=== PATIENT | male | born 1970 | race Caucasian/White ===

== ENCOUNTER 2016-12-27 17:11 | Inpatient (IN) | payer OTHER ==
[2016-12-27 19:01] LABS: Hematocrit 46 % (42-52); Hemoglobin 15.6 g/dl (14.0-18.0); Mean Corpuscular HGB Conc 34 g/dl (31-36); Mean Corpuscular Hemoglobin 30 pg (27-31); Mean Corpuscular Volume 87 fL (80-94); Mean Platelet Volume 8 um3 (7.4-10.4); Red Blood Count 5.26 10^6/ul (4.0-5.4); Red Cell Distribution Width 14 % (10.5-15); White Blood Count 6.2 10^3/ul (3.5-10.8)
[2016-12-27 19:23] LABS: ALT 24 U/L (7-52); AST 22 U/L (13-39); Albumin 3.9 g/dL (3.2-5.2); Alkaline Phosphatase 76 U/L (34-104); Anion Gap 8 mmol/L (2-11); BUN/Creatinine Ratio 14.4 (8-20); Blood Urea Nitrogen 13 mg/dL (6-24); CO2 Carbon Dioxide 27 mmol/L (22-32); Calcium 8.8 mg/dL (8.6-10.3); Chloride 99 mmol/L (101-111); EGFR African American 116.3 (>60); EGFR Non-African American 90.4 (>60); Globulin 3.6 g/dL (2-4); Glucose 264 mg/dL (70-100); Potassium 3.7 mmol/L (3.5-5.0); Sodium 134 mmol/L (133-145); Total Protein 7.5 g/dL (6.4-8.9)
[2016-12-27 19:53] LABS: Acetaminophen < 15 mcg/mL; Alcohol < 10 mg/dL (<10); Salicylate < 2.50 mg/dL (<30)
[2016-12-27 20:04] LABS: TSH (Thyroid Stimulating Horm) 4.38 mcIU/mL (0.34-5.60)
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
--- NOTE | 2016-12-27 22:54 | PN ---
Dana Cam SooYoung, scribed for Mina Figueroa on 12/27/16 at 2234 . Progress Note - Progress Note Date of Service: 12/27/16 Note: SO at shift change from Dr. Patel, pending MHE. Discussed with pyschiatrist after MHE, pt will be admitted to [facility]. DX: DEPRESSION The documentation as recorded by the Dana antoine SooYoung accurately reflects the service I personally performed and the decisions made by Henry kan Emmanuel.
[2016-12-28] MEDS: Gabapentin CAP(*) 300 MG PO SCH ×3 (10:32→21:16)
[2016-12-28] MEDS: Insulin LISPRO* 1 UNITS UNIT SUBCUT SCH ×3 (11:51→21:38)
[2016-12-28] MEDS: Insulin GLARGINE(*) 1 UNITS UNIT SUBCUT SCH (11:52)
--- NOTE | 2016-12-28 15:46 | ADMNOTE ---
Identification - Identify Employment Status: Unemployed Hx Psychiatric Hospitalization: No Prior Psychiatric Diagnosis: None Arrived to Hospital Via: Law Enforcement History - Objective HPI: BIB law enforcement after his room mate called police as he was verbalizing suicidal thoughts with plans to not eat and use his insulin to end his life. He was apprehended for stealing $500.00 from his sister's credit card and possibly facing some senior living time next month. Extremely anxious and humiliated and feels guilty. Has been thinking about ending his life instead of going to senior living. Denies depressive, manic/ hypomanic or psychotic symptoms. Lab Results: Laboratory Tests 12/28/16 12/28/16 07:37 11:31 POC Glucose (mg/dL) 218 H 289 H Exam Appearance: Healthy Appearing Hygiene: Normal Grooming: Fairly Well Kept Psychomotor Activities: Normal Exhibits Abnormal Movement: No Attitude and Relatedness: Appropriate Eye Contact: Good - Speech Quality: Unpressured Latencies: Normal Quantity: Appropriate Patient's Decription of Mood: "Terrible" Observed Affect: Depressed Affect Consistent with: Dysphoria Patient's Thought Process: Coherent, Goal Directed Thought Content: Yes Passive Wish, Yes Suicidal Planning - Use his own Insulin, No Homicidal Ideation, No Paranoid Ideation Experiencing Hallucinations: No, Sensorium is Clear Type of Hallucinations: Visual: No, Auditory: No, Command: No Level of Consciousness: Alert Orientation: Yes Intact, Yes Orientated to Time, Yes Orientated to Place, Yes Orientated to Person Impulse Control: Tenuous Insight and Judgement: Poor Impression - Impression Merits Inpatient Hospitalization: Yes - [place] [facility] Mental Illness: Adjustment d/o, depressed mood. - [place] [facility] Medical Illness: Insulin dependant DM II Plan - Treatment Plan Continued Medication Management: Start Medication Medications: Current Medications Gabapentin (Neurontin Cap(*)) 600 mg PO TID [facility] Last Admin: 12/28/16 13:40 Dose: 600 mg Hydroxyzine HCl (Atarax Tab*) 25 mg PO Q6H PRN PRN Reason: AGITATION/ANXIETY/INSOMNIA Insulin Glargine (Lantus(*)) 55 units SUBCUT DAILY [facility] Last Admin: 12/28/16 11:52 Dose: 55 units Insulin Human Lispro (Humalog*) 0 units SUBCUT [facility] PRN Reason: Protocol Last Admin: 12/28/16 11:51 Dose: 6 units - Discharge Plan Discharge Plan: Outpatient Follow Up Outpatient Program: [facility]
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
[2016-12-28] MEDS: Atorvastatin* 20 MG TAB PO SCH (21:16)
[2016-12-28] MEDS: hydrOXYzine HCL TAB* 25 MG PO PRN (21:16)
[2016-12-29] MEDS: Insulin LISPRO* 1 UNITS UNIT SUBCUT SCH ×4 (09:16→20:17)
[2016-12-29] MEDS: Gabapentin CAP(*) 300 MG PO SCH ×3 (09:19→20:19)
[2016-12-29] MEDS: Insulin GLARGINE(*) 1 UNITS UNIT SUBCUT SCH (09:20)
[2016-12-29 10:13] LABS: Urine Bilirubin Negative (Negative); Urine Glucose 1+(50 mg/dL) (Negative); Urine Nitrite Negative (Negative)
[2016-12-29 10:20] LABS: Benzodiazepine Urine Screen None Detected (None Detect)
[2016-12-29] MEDS: hydrOXYzine HCL TAB* 25 MG PO PRN ×2 (13:34→20:28)
[2016-12-29] MEDS ORDERED: Acetaminophen TAB* 325 MG PO PRN (20:13)
[2016-12-29] MEDS ORDERED: Acetaminophen TAB* 325 MG ONE (20:14)
[2016-12-29] MEDS: Atorvastatin* 20 MG TAB PO SCH (20:19)
[2016-12-30] MEDS: hydrOXYzine HCL TAB* 25 MG PO PRN ×3 (06:17→20:52)
[2016-12-30] MEDS: Insulin LISPRO* 1 UNITS UNIT SUBCUT SCH ×4 (08:59→20:49)
[2016-12-30] MEDS: Gabapentin CAP(*) 300 MG PO SCH ×3 (09:00→20:49)
[2016-12-30] MEDS: Insulin GLARGINE(*) 1 UNITS UNIT SUBCUT SCH (09:00)
--- NOTE | 2016-12-30 13:23 | PN ---
MHU: Group Therapy Note - Service Type Service Type: 36009 Group Psychotherapy - Cognitive Behavioral Group Therapy ( CBT):Patient was attentive and participatory in CBT programming this morning, and remained in good behavioral control. Patient expressed positive insights regarding relevant treatment interventions and goals.
--- NOTE | 2016-12-30 15:42 | PN ---
Subjective - Subjective Subjective: Patient is dysphoric and tearful. He reports crying daily, anhedonia and decrease in ADLs and diabetes management. He report daily thoughts of "I don't want to be here anymore, I want to be with them" and refers to his late parents. Patient also endorses generalized anxiety with panic attacks. He denies prior medication trials for the above. He states he smokes marijuana daily to quell anxiety. Objective - Appearance Appearance: Healthy Appearing Dysmorphic Features: Yes Hygiene: Normal Grooming: Well Kept - Behavior Psychomotor Activities: Normal Exhibits Abnormal Movement: No - Attitude and Relatedness Attitude and Relatedness: Cooperative Eye Contact: Good - Speech Quality: Unpressured Latencies: Normal Quantity: Copious - Mood Patient's Decription of Mood: "Anxious" - Affect Observed Affect: Tearful Affect Consistent with: Dysphoria - Thought Process Patient's Thought Process: Coherent, Goal Directed, Over Inclusive Thought Content: Yes Passive Wish, No Suicidal Planning, No Homicidal Ideation, No Paranoid Ideation - Sensorium Experiencing Hallucinations: No, Sensorium is Clear Type of Hallucinations: Visual: No, Auditory: No, Command: No - Level of Consciousness Level of Consciousness: Alert Orientation: Yes Intact, Yes Orientated to Time, Yes Orientated to Place, Yes Orientated to Person - Impulse Control Impulse Control: Tenuous - Insight and Judgement Insight and Judgement: Poor - Group Participation Particating in Group Activities: Yes - Medication Management Medication Management Adherence: Yes Assessment - Assessment Merits Inpatient Hospitalization: For Immediate Safety, For Stabilization, To Initiate Treatment Inpatient DSM-IV Dx: I: adjustment d/o with depressed mood; generalized anxiety d/o; unspecified depressive d/o. II: deferred. III: type 2 DM, HTN. IV: severe stressors r/t finances, social isolation and legal involvement. V: 50 Clinical Impression: Sepideh is a 46yo male with no prior psychiatric history who presents with depressed mood and suicidal ideation. He reports anxiety and cannabis dependence. He is grieving the of his mother who passed in may 2015. He is facing legal consequences due to stealing his sister's credit card. He merits hospitalization for immediate safety and stabilization. Will refer to outpatient services upon discharge. Plan - Plan Treatment Plan: Name: SEPIDEH MERCHANT Birthdate: 1970 [id number] Continued Medication Management: Different Medication Medications: Current Medications Acetaminophen (Tylenol Tab*) 650 mg PO Q6H PRN PRN Reason: HEADACHE Atorvastatin Calcium (Lipitor*) 20 mg PO BEDTIME [facility] Last Admin: 12/29/16 20:19 Dose: 20 mg Gabapentin (Neurontin Cap(*)) 600 mg PO TID [facility] Last Admin: 12/30/16 13:37 Dose: 600 mg Hydroxyzine HCl (Atarax Tab*) 25 mg PO Q6H PRN PRN Reason: AGITATION/ANXIETY/INSOMNIA Last Admin: 12/30/16 13:37 Dose: 25 mg Insulin Glargine (Lantus(*)) 55 units SUBCUT DAILY [facility] Last Admin: 12/30/16 09:00 Dose: 55 units Insulin Human Lispro (Humalog*) 0 units SUBCUT ACHS [facility] PRN Reason: Protocol Last Admin: 12/30/16 12:02 Dose: 4 units start: Wellbutrin SR 150mg qam mirtazapine 15mg qhs - Discharge Plan Discharge Plan: Outpatient Follow Up Outpatient Program: [facility]
[2016-12-30] MEDS: Atorvastatin* 20 MG TAB PO SCH (20:49)
[2016-12-30] MEDS: Mirtazapine TAB* 15 MG PO PRN (20:52)
[2016-12-31] MEDS: Insulin LISPRO* 1 UNITS UNIT SUBCUT SCH ×3 (07:49→17:40)
[2016-12-31] MEDS: Gabapentin CAP(*) 300 MG PO SCH ×3 (09:36→20:49)
[2016-12-31] MEDS: buPROPion SR TAB.SR* 100 MG PO SCH (09:38)
[2016-12-31] MEDS: Insulin GLARGINE(*) 1 UNITS UNIT SUBCUT SCH (09:38)
[2016-12-31] MEDS: hydrOXYzine HCL TAB* 25 MG PO PRN ×3 (09:42→20:52)
[2016-12-31] MEDS ORDERED: Dextrose 50% Syringe 50 ML* 25 GM/50 ML SYRINGE IV PUSH PRN (13:46)
[2016-12-31 14:38] LABS: Hematocrit 41 % (42-52); Mean Corpuscular HGB Conc 34 g/dl (31-36); Mean Corpuscular Hemoglobin 29 pg (27-31); Mean Corpuscular Volume 87 fL (80-94); Mean Platelet Volume 8 um3 (7.4-10.4); Red Blood Count 4.74 10^6/ul (4.0-5.4); Red Cell Distribution Width 14 % (10.5-15); White Blood Count 7.8 10^3/ul (3.5-10.8)
[2016-12-31 14:58] LABS: BUN/Creatinine Ratio 30.7 (8-20); Calcium 9.7 mg/dL (8.6-10.3); EGFR African American 101.8 (>60); EGFR Non-African American 79.2 (>60); Potassium 5.4 mmol/L (3.5-5.0)
[2016-12-31 15:26] LABS: Albumin 3.7 g/dL (3.2-5.2); Direct Bilirubin 0.1 mg/dL (0.03-0.18); Globulin 3.5 g/dL (2-4); Indirect Bilirubin 0.1 mg/dL (0.3-1.0); Total Bilirubin 0.2 mg/dL (0.2-1.0); Total Protein 7.2 g/dL (6.4-8.9)
[2016-12-31] MEDS: Losartan TAB* 25 MG PO SCH (15:45)
--- NOTE | 2016-12-31 15:54 | PN ---
Subjective - Subjective Service Type: 98563 Hosp care 15 min low complexity Subjective: Patient blood glucose levels are labile. He is intermittently symptomatic. [employer] Installer Helper requested hospitalist consult and nutrition consult. Patient reports continued depressed mood and anxiety. He states understanding of plan to pursue medical stabilization due to impact on mood. Objective - Appearance Appearance: Well Developed/Nourished Dysmorphic Features: Yes Hygiene: Normal Grooming: Disheveled - Behavior Psychomotor Activities: Normal Exhibits Abnormal Movement: No - Attitude and Relatedness Attitude and Relatedness: Needy Eye Contact: Good - Speech Quality: Unpressured Latencies: Normal Quantity: Copious - Mood Patient's Decription of Mood: "Anxious" - Affect Observed Affect: Depressed Affect Consistent with: Dysphoria - Thought Process Patient's Thought Process: Coherent, Over Inclusive Thought Content: Yes Passive Wish, Yes Suicidal Planning, No Homicidal Ideation, No Paranoid Ideation - Sensorium Experiencing Hallucinations: No, Sensorium is Clear Type of Hallucinations: Visual: No, Auditory: No, Command: No - Level of Consciousness Level of Consciousness: Alert Orientation: Yes Intact, Yes Orientated to Time, Yes Orientated to Place, Yes Orientated to Person - Impulse Control Impulse Control: Tenuous - Insight and Judgement Insight and Judgement: Poor - Group Participation Particating in Group Activities: Yes - Medication Management Medication Management Adherence: Yes Assessment - Assessment Merits Inpatient Hospitalization: For Immediate Safety, For Stabilization, To Initiate Treatment, For Discharge Planning Inpatient DSM-IV Dx: I: adjustment d/o with depressed mood; generalized anxiety d/o; unspecified depressive d/o. II: deferred. III: type 2 DM, HTN. IV: severe stressors r/t finances, social isolation and legal involvement. V: 50 Clinical Impression: Sepideh is a 46yo male with no prior psychiatric history who presents with depressed mood and suicidal ideation. He reports anxiety and cannabis dependence. He is grieving the of his mother who passed in may 2015. He is facing legal consequences due to stealing his sister's credit card. He merits hospitalization for immediate safety and stabilization. Will refer to outpatient services upon discharge. Plan - Plan Treatment Plan: Name: SEPIDEH MERCHANT Birthdate: 1970 [id number] Continue current medications. Hospitalist service consulted to assist in diabetes management. Nutrition consult entered to assist patient in diet choices. Decrease observation to q30 min. Hold staff pass until more medically stable. Continued Medication Management: Different Medication Medications: Current Medications Acetaminophen (Tylenol Tab*) 650 mg PO Q6H PRN PRN Reason: HEADACHE Atorvastatin Calcium (Lipitor*) 20 mg PO BEDTIME [facility] Last Admin: 12/30/16 20:49 Dose: 20 mg Bupropion HCl (Wellbutrin Sr Tab*) 100 mg PO DAILY [facility] Last Admin: 12/31/16 09:38 Dose: 100 mg Dextrose (D50w Syringe 50 Ml*) 12.5 gm IV PUSH .FOR FS < 60 - SS PRN PRN Reason: FS < 60 Gabapentin (Neurontin Cap(*)) 600 mg PO TID [facility] Last Admin: 12/31/16 14:32 Dose: 600 mg Hydroxyzine HCl (Atarax Tab*) 25 mg PO Q6H PRN PRN Reason: AGITATION/ANXIETY/INSOMNIA Last Admin: 12/31/16 14:48 Dose: 25 mg Insulin Glargine (Lantus(*)) 45 units SUBCUT DAILY [facility] Insulin Human Lispro (Humalog*) 0 units SUBCUT [facility] PRN Reason: Protocol Losartan Potassium (Cozaar Tab*) 25 mg PO DAILY [facility] Last Admin: 12/31/16 15:45 Dose: 25 mg Mirtazapine (Remeron Tab*) 15 mg PO BEDTIME PRN PRN Reason: SLEEP Last Admin: 12/30/16 20:52 Dose: 15 mg - Discharge Plan Discharge Plan: Outpatient [facility]
[2016-12-31] MEDS ORDERED: Insulin LISPRO* 1 UNITS UNIT SUBCUT ONE ×2 (17:37→17:39)
[2016-12-31] MEDS: Atorvastatin* 20 MG TAB PO SCH (20:49)
[2016-12-31] MEDS: Mirtazapine TAB* 15 MG PO PRN (20:52)
--- NOTE | 2016-12-31 21:32 | CONS ---
CC: Dr. Hernandez; Dr. Schulte* CONSULTATION REPORT: DATE OF CONSULT: 12/31/16 PRIMARY CARE PROVIDER: Dr. Hernandez. ATTENDING PHYSICIAN WHILE IN THE HOSPITAL: Dr. Kylee Pitt (report dictated by Barrear Anderson NP). REQUESTING PHYSICIAN IN CONSULT: Dr. Schulte. REASON FOR MEDICAL CONSULT: Evaluation of medical problems and management of diabetes. HISTORY OF PRESENT ILLNESS: Mr. Comer is a 46-year-old male patient that presented to the ED on 12/28/16 with suicidal ideation and worsening depression. He was admitted to the psychiatric unit for stabilization. The hospitalist service was asked to evaluate today in consult because it was noted his blood sugars have been rather labile in the morning around 40s to 60s and at other times, they are in the 150 to 200 range and we were asked to evaluate in consult. On evaluating the patient, I actually had to wake him up. He feels a little tired. Apparently, he says he slept through lunch, he says he feels a little lightheaded particularly when he change his positions. He denies having any chest pain or shortness of breath. He denies having any syncopal episodes. He says that at home he normally just takes insulin once a day without a sliding scale. He denies having any again chest pain or any shortness of breath. Says, he has been eating. He says this morning he noted that his sugars again were down into 40s. He required orange juice and bagel and the blood sugar came back up appropriately. He denies having any headache and denies having any change in medications recently, but because of his medical complexity, we were asked to evaluate in consult. PAST MEDICAL HISTORY: Significant for: 1. Diabetes. 2. Neuropathy. 3. Hypertension. PAST SURGICAL HISTORY: 1. 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 2. He has had laparoscopic cholecystectomy. 3. He has had knee arthroscopy. MEDICATIONS: Home meds according to the med record include: 1. Cozaar 25 mg daily. 2. Lipitor 1 tablet at bedtime. 3. Florinef 0.1 mg p.o. daily. 4. Tresiba FlexTouch 55 units subcu q.a.m. 5. Gabapentin 600 mg p.o. t.i.d. ALLERGIES TO MEDICATIONS: Include no known drug allergies. FAMILY HISTORY: His mother had a history of MO. Father had a history of diabetes. SOCIAL HISTORY: He does not smoke. He rarely drinks alcohol. He does not appoint a surrogate decision maker at this point. REVIEW OF SYSTEMS: There is no documented fever. He denied having any significant weight change. There was no double vision. He denies having any ear discharge. There was no rhinorrhea. No sore throat. No thyroid enlargement. Denies having any chest pain. There is no orthopnea. There is no nocturnal dyspnea. He denies having any abdominal pain. There is no nausea , there is no vomiting. There is no dysuria, there is no frequency. There is no seizure. There is no loss of consciousness. No pruritus and no skin ulcerations. Review of 14 systems completed, all others negative. PHYSICAL EXAM: Vital Signs: Blood pressure 112/78, pulse 90, respirations 16, O2 sat 98%, and temperature of 98.9. General: At this time, Mr. Comer is a 46 -year- old male patient. He is sitting in the couch down in the psychiatric unit. He does not appear to be in any acute distress. HEENT: Head is atraumatic and normocephalic. Eyes: EOMs are intact. Sclerae anicteric and not pale. Neck: Supple. Throat: Oral mucosa appears to be moist. No oropharyngeal erythema. Heart: Sounds S1, S2. Regular rate and rhythm. No murmurs, rubs, or gallops. Lungs: Clear to auscultation bilaterally. No wheezes, rales, or rhonchi. Abdomen: Soft, flat, nontender. Bowel sounds present. Extremities: Pulses are 2+ throughout. He is able to move all 4 extremities. 5/5 strength. Neurological: He is awake, alert, oriented x3. No gross focal deficits. Skin: Intact. LABORATORY DATA: From the ER revealed WBC 6.2, RBC of 5.26, hemoglobin 15.6, hematocrit of 46, and platelet count of 238. Sodium 134, potassium 3.7, chloride 99, bicarb 27, BUN 13, creatinine 0.98, glucose 264. His calcium is 8.8. Total bili 0.5, AST 20, ALT 24, His albumin is 3.9. TSH was normal at 4.38. Urine was obtained, negative. Toxicology was positive for cannabis. Old medical records reviewed. ASSESSMENT AND PLAN: Mr. Comer is a 46-year-old male patient coming in to the psychiatric services for suicidal ideation and worsening depression. Hospitalist service was asked to evaluate due to the fact that he is having labile blood sugars. My recommendations at this point are: 1. Suicidal ideation and depression. I will defer the management to Psychiatry and the primary team. 2. Diabetes. Again, he is getting h.s. cover using lispro, so I am going to stop this as most of his low sugars has been in the morning. I am also going to reduce the Lantus down to 45 units. We will follow this closely. We are checking an A1c. 3. Lightheadedness. I am going to check CBC and BMP. I do note that he was on Florinef in the outpatient setting. I will check orthostatic blood pressures. If he is orthostatic, then I would recommend continuing the Florinef. 4. Neuropathy. Continue his gabapentin. 5. DVT prophylaxis. I will defer to the primary team. 6. Fluids, electrolytes, and nutrition. I would recommend a consistent carb diet. 7. Code status: Full code. TIME SPENT: On the consult was 60 minutes; greater than half the time was spent [id number] with the patient obtaining my history and physical, other half the time was spent going over the plan of care with the patient and implementing the plan of care. I did discuss the plan of care with my attending, Dr. Pitt; she is in agreement. BARRERA ANDERSON NP [id number]/CPS #: [id number] NUHA
[2016-12-31] MEDS ORDERED: diPHENhydraMINE PO* 50 MG PO PRN (22:30)
[2016-12-31] MEDS ORDERED: diPHENhydraMINE PO* 50 MG ONE (22:35)
[2016-12-31 23:10] LABS: BUN/Creatinine Ratio 31.4 (8-20); Calcium 9.1 mg/dL (8.6-10.3); EGFR African American 100.7 (>60); EGFR Non-African American 78.3 (>60); Potassium 4.9 mmol/L (3.5-5.0)
[2017-01-01] MEDS: hydrOXYzine HCL TAB* 25 MG PO PRN ×3 (07:19→23:48)
[2017-01-01] MEDS: Insulin LISPRO* 1 UNITS UNIT SUBCUT SCH ×3 (07:43→17:07)
[2017-01-01] MEDS: Losartan TAB* 25 MG PO SCH (09:00)
[2017-01-01] MEDS: Gabapentin CAP(*) 300 MG PO SCH ×3 (09:00→20:36)
[2017-01-01] MEDS: Fludrocortisone Acetate TAB* 0.1 MG PO SCH (09:00)
[2017-01-01] MEDS: Insulin GLARGINE(*) 1 UNITS UNIT SUBCUT SCH (09:01)
[2017-01-01] MEDS: buPROPion SR TAB.SR* 100 MG PO SCH (09:01)
[2017-01-01 09:13] LABS: BUN/Creatinine Ratio 26.6 (8-20); Calcium 9.7 mg/dL (8.6-10.3); EGFR African American 110.6 (>60); Potassium 4.7 mmol/L (3.5-5.0)
--- NOTE | 2017-01-01 11:34 | PN ---
MHU: Group Therapy Note - Service Type Service Type: [id number] Group Psychotherapy - Cognitive Behavioral Group Therapy ( CBT):Patient was attentive and participatory in CBT programming this morning, and remained in good behavioral control. Patient expressed positive insights regarding relevant treatment interventions and goals.
--- NOTE | 2017-01-01 13:26 | PN ---
Subjective - Subjective Service Type: [id number] Hosp care 15 min low complexity Subjective: Patient reports his mood is "better than yesterday." He states he was angry and easily irritated yesterday. He reports feeling depressed and somewhat hopeless that his sons are not contacting him while he is here. He reports thoughts of "if they don't care, why should I care" and eludes to passive wish. He states he had a positive phone call with his daughter. He reports improved sleep, 4-5 hours last night. Patient reports onset of rash on lower extremities, bilaterally. He reports a tingling sensation "all over my body." He attributes this to wellbutrin. Pt blood sugars continue to be elevated at times, but stay above 80s. He reports eating poorly and identifies that he has mood swings related to labile blood glucose levels. He received a nutrition consult and was given information about carb counting. Objective - Appearance Appearance: Well Developed/Nourished Dysmorphic Features: Yes Hygiene: Normal Grooming: Fairly Well Kept - Behavior Psychomotor Activities: Normal Exhibits Abnormal Movement: No - Attitude and Relatedness Attitude and Relatedness: Cooperative Eye Contact: Good - Speech Quality: Unpressured Latencies: Normal Quantity: Appropriate - Mood Patient's Decription of Mood: "better than yesterday" - Affect Observed Affect: Depressed Affect Consistent with: Dysphoria - Thought Process Patient's Thought Process: Coherent, Goal Directed Thought Content: Yes Passive Wish, No Suicidal Planning, No Homicidal Ideation, No Paranoid Ideation - Sensorium Experiencing Hallucinations: No, Sensorium is Clear Type of Hallucinations: Visual: No, Auditory: No, Command: No - Level of Consciousness Level of Consciousness: Alert Orientation: Yes Intact, Yes Orientated to Time, Yes Orientated to Place, Yes Orientated to Person - Impulse Control Impulse Control: Tenuous - Insight and Judgement Insight and Judgement: Fair - Group Participation Particating in Group Activities: Yes - Medication Management Medication Management Adherence: Yes Assessment - Assessment Merits Inpatient Hospitalization: For Immediate Safety, For Stabilization, To Initiate Treatment, For Discharge Planning Inpatient DSM-IV Dx: I: adjustment d/o with depressed mood; generalized anxiety d/o; unspecified depressive d/o. II: deferred. III: type 2 DM, HTN. IV: severe stressors r/t finances, social isolation and legal involvement. V: 50 Clinical Impression: Sepideh is a 46yo male with no prior psychiatric history who presents with depressed mood and suicidal ideation. He reports anxiety and cannabis dependence. He is grieving the of his mother who passed in may 2015. He is facing legal consequences due to stealing his sister's credit card. He merits hospitalization for immediate safety and stabilization. Will refer to outpatient services upon discharge. Plan - Plan Treatment Plan: Name: SEPIDEH MERCHANT Birthdate: 1970 [id number] DC wellbutrin d/t possible allergic reaction (rash). Trial citalopram and continue mirtazapine. Hospitalist service consulted to assist in diabetes management. Nutrition consult entered to assist patient in diet choices. Continue observation q30 min and may have staff pass. Continued Medication Management: Different Medication Medications: Current Medications Acetaminophen (Tylenol Tab*) 650 mg PO Q6H PRN PRN Reason: HEADACHE Atorvastatin Calcium (Lipitor*) 20 mg PO BEDTIME [facility] Last Admin: 12/31/16 20:49 Dose: 20 mg Citalopram Hydrobromide (Celexa Tab*) 20 mg PO DAILY [facility] Dextrose (D50w Syringe 50 Ml*) 12.5 gm IV PUSH .FOR FS < 60 - SS PRN PRN Reason: FS < 60 Diphenhydramine HCl (Benadryl Po*) 50 mg PO Q6HR PRN PRN Reason: ANXIETY/ITCHING Fludrocortisone Acetate (Florinef Tab*) 0.1 mg PO DAILY [facility] Last Admin: 01/01/17 09:00 Dose: 0.1 mg Gabapentin (Neurontin Cap(*)) 600 mg PO TID [facility] Last Admin: 01/01/17 09:00 Dose: 600 mg Hydroxyzine HCl (Atarax Tab*) 25 mg PO Q6H PRN PRN Reason: AGITATION/ANXIETY/INSOMNIA Last Admin: 01/01/17 07:19 Dose: 25 mg Insulin Glargine (Lantus(*)) 45 units SUBCUT DAILY [facility] Last Admin: 01/01/17 09:01 Dose: 45 units Insulin Human Lispro (Humalog*) 0 units SUBCUT [facility] PRN Reason: Protocol Last Admin: 01/01/17 12:04 Dose: 6 units Losartan Potassium (Cozaar Tab*) 25 mg PO DAILY [facility] Last Admin: 01/01/17 09:00 Dose: 25 mg Mirtazapine (Remeron Tab*) 15 mg PO BEDTIME PRN PRN Reason: SLEEP Last Admin: 12/31/16 20:52 Dose: 15 mg - Discharge Plan Discharge Plan: Outpatient Follow Up Outpatient Program: [facility]
[2017-01-01] MEDS: Citalopram TAB* 20 MG PO SCH (13:51)
--- NOTE | 2017-01-01 13:57 | PN ---
Subjective Date of Service: 01/01/17 Interval History: Mr. Comer reports feeling especially fatigued yesterday and notes that his BG at one point was in the 40s. He does not feel he has eaten extra food to explain the variation in his blood sugar. He reports starting Wellbutrin yesterday and wonders if that was contributing; he does note that last evening, his legs became very itchy and reports a red, raised, rash to BLE. No other affected areas noted. He denies fever/chills, CP, SOB. He reports intermittent diarrhea since his gall bladder surgery in November. Also reports right sided flank pain that he thinks is from sleeping on the couch in the common area. Family History: Unchanged from Admission Social History: Unchanged from Admission Past Medical History: Unchanged from Admission Objective Active Medications: Acetaminophen (Tylenol Tab*) 650 mg PO Q6H PRN PRN Reason: HEADACHE Atorvastatin Calcium (Lipitor*) 20 mg PO BEDTIME [facility] Last Admin: 12/31/16 20:49 Dose: 20 mg Citalopram Hydrobromide (Celexa Tab*) 20 mg PO DAILY [facility] Last Admin: 01/01/17 13:51 Dose: 20 mg Dextrose (D50w Syringe 50 Ml*) 12.5 gm IV PUSH .FOR FS < 60 - SS PRN PRN Reason: FS < 60 Diphenhydramine HCl (Benadryl Po*) 50 mg PO Q6HR PRN PRN Reason: ANXIETY/ITCHING Fludrocortisone Acetate (Florinef Tab*) 0.1 mg PO DAILY [facility] Last Admin: 01/01/17 09:00 Dose: 0.1 mg Gabapentin (Neurontin Cap(*)) 600 mg PO TID [facility] Last Admin: 01/01/17 13:50 Dose: 600 mg Hydroxyzine HCl (Atarax Tab*) 25 mg PO Q6H PRN PRN Reason: AGITATION/ANXIETY/INSOMNIA Last Admin: 01/01/17 07:19 Dose: 25 mg Insulin Glargine (Lantus(*)) 45 units SUBCUT DAILY [facility] Last Admin: 01/01/17 09:01 Dose: 45 units Insulin Human Lispro (Humalog*) 0 units SUBCUT AC [facility] PRN Reason: Protocol Last Admin: 01/01/17 12:04 Dose: 6 units Losartan Potassium (Cozaar Tab*) 25 mg PO DAILY [facility] Last Admin: 01/01/17 09:00 Dose: 25 mg Mirtazapine (Remeron Tab*) 15 mg PO BEDTIME PRN PRN Reason: SLEEP Last Admin: 12/31/16 20:52 Dose: 15 mg Vital Signs 12/31/16 12/31/16 12/31/16 14:25 14:30 14:32 Temperature 97.5 F 97.5 F Pulse Rate 94 93 94 Respiratory 16 16 16 Rate Blood Pressure 184/91 184/91 158/91 (mmHg) O2 Sat by Pulse 93 99 99 Oximetry 12/31/16 12/31/16 12/31/16 14:47 15:16 16:32 Temperature Pulse Rate Respiratory 16 16 Rate Blood Pressure (mmHg) O2 Sat by Pulse 99 Oximetry 12/31/16 12/31/16 12/31/16 20:00 20:49 22:49 Temperature 98.3 F Pulse Rate 91 Respiratory 18 16 Rate Blood Pressure 102/67 (mmHg) O2 Sat by Pulse 99 Oximetry 12/31/16 01/01/17 01/01/17 22:53 04:30 07:27 Temperature 97.3 F Pulse Rate 79 79 Respiratory 16 16 16 Rate Blood Pressure 109/69 127/73 (mmHg) O2 Sat by Pulse 98 98 Oximetry 01/01/17 01/01/17 01/01/17 09:00 10:45 12:43 Temperature Pulse Rate Respiratory 16 16 16 Rate Blood Pressure (mmHg) O2 Sat by Pulse Oximetry 01/01/17 13:50 Temperature Pulse Rate Respiratory 16 Rate Blood Pressure (mmHg) O2 Sat by Pulse Oximetry Oxygen Devices in Use Now: None Appearance: Male patient, OOB to chair, NAD Eyes: No Scleral Icterus Ears/Nose/Mouth/Throat: Mucous Membranes Moist Neck: NL Appearance and Movements; NL JVP Respiratory: Symmetrical Chest Expansion and Respiratory Effort, Clear to Auscultation Cardiovascular: NL Sounds; No Murmurs; No JVD, RRR Abdominal: NL Sounds; No Tenderness; No Distention Extremities: No Clubbing, Cyanosis, - - trace lower extremity edema Skin: - - urticaria noted to BLE with evident scratch watson Neurological: Alert and Oriented x 3, NL Muscle Strength and Tone Nutrition: Taking PO's Result Diagrams: 12/31/16 14:30 01/01/17 08:22 Additional Lab and Data: Lab Results 12/27/16 Range/Units 17:20 POC Glucose (mg/dL) 302 H (70-100) mg/dL Assess/Plan/Problems-Billing Assessment: Mr. Comer is a 46 yo male with a PMH of DM2 with neuropathy and HTN who was admitted for suicidal ideation and worsening depression; hospital medicine following for labile blood sugars. - Patient Problems (1) Depression with suicidal ideation Code(s): F32.9 - MAJOR DEPRESSIVE DISORDER, SINGLE EPISODE, UNSPECIFIED; R45.851 - SUICIDAL IDEATIONS Comment: Management per psychiatry team (2) Diabetes mellitus Code(s): E11.9 - TYPE 2 DIABETES MELLITUS WITHOUT COMPLICATIONS Comment: Type 2 diabetes with neuropathy Continue reduced dose Lantus and Lispro SSI with meals BG are still rather labile so will slowly adjust medications Consistent carb diet ordered (3) Orthostatic hypotension Code(s): I95.1 - ORTHOSTATIC HYPOTENSION Comment: Patient reports hx of autonomic orthostatic hypotension Patient with positive orthostatics yesterday Resume home Florinef. (4) Diabetic neuropathy Code(s): E11.40 - TYPE 2 DIABETES MELLITUS WITH DIABETIC NEUROPATHY, UNSP Comment: Continue home gabapentin. (5) Rash Code(s): R21 - RASH AND OTHER NONSPECIFIC SKIN ERUPTION Comment: Etiology unclear Possible contact dermatitis May also be medication mediated (just started Wellbutrin) Patient now on Celexa, continue to monitor rash Continue prn antihistamines, topical hydrocortisone cream (6) Diarrhea Code(s): R19.7 - DIARRHEA, UNSPECIFIED Comment: Intermittent since November Patient denies sick contacts or changes in diet Does not appear infectious, no abd pain or n/v, WBC normal, pt afebrile Start probiotic Check stool culture and ova/parasites Status and Disposition: Dispo per [facility].
[2017-01-01] MEDS: Lactobacillus Acidophilu (GG)* 1 CAP CAP PO SCH (14:11)
[2017-01-01] MEDS: Hydrocortisone 1% CREAM* 30 GM TUBE TOPICAL PRN ×2 (14:11→19:53)
[2017-01-01] MEDS: Atorvastatin* 20 MG TAB PO SCH (20:36)
[2017-01-01] MEDS: Mirtazapine TAB* 15 MG PO PRN (23:48)
[2017-01-02] MEDS: Insulin LISPRO* 1 UNITS UNIT SUBCUT SCH ×3 (08:51→21:45)
[2017-01-02] MEDS: Insulin GLARGINE(*) 1 UNITS UNIT SUBCUT SCH (08:55)
[2017-01-02] MEDS: Fludrocortisone Acetate TAB* 0.1 MG PO SCH (08:56)
[2017-01-02] MEDS: Citalopram TAB* 20 MG PO SCH (08:56)
[2017-01-02] MEDS: Gabapentin CAP(*) 300 MG PO SCH ×3 (08:56→21:07)
[2017-01-02] MEDS: Losartan TAB* 25 MG PO SCH (08:56)
[2017-01-02] MEDS: Lactobacillus Acidophilu (GG)* 1 CAP CAP PO SCH (08:56)
--- NOTE | 2017-01-02 11:41 | PN ---
MHU: Group Therapy Note - Service Type Service Type: [id number] Group Psychotherapy - Cognitive Behavioral Group Therapy ( CBT):Patient was attentive and participatory in CBT programming this morning, and remained in good behavioral control. Patient expressed positive insights regarding relevant treatment interventions and goals.
[2017-01-02] MEDS: hydrOXYzine HCL TAB* 25 MG PO PRN ×2 (14:40→21:09)
--- NOTE | 2017-01-02 14:54 | PN ---
Hospitalist Progress Note Patient's records and labs reviewed; mild adjustment to Lantus made in order to obtain better glucose control. Will continue to follow. Awaiting stool sample collection results. Will follow patient tomorrow.
--- NOTE | 2017-01-02 15:18 | PN ---
Subjective - Subjective Service Type: 75612 Hosp care 15 min low complexity Subjective: Patient reports anger and frustration in regards to interactions in groups. Specifically, he was annoyed when peers were disruptive. He states he also is angry that his children have not reached out to him or returned his calls. He reports poor sleep last night, only approx 2 hours. His blood glucose levels have remained from 100 to low 200s. He reports eating consistent diet of diabetic trays provided to him. Objective - Appearance Appearance: Well Developed/Nourished Dysmorphic Features: No Hygiene: Normal Grooming: Well Kept - Behavior Psychomotor Activities: Normal Exhibits Abnormal Movement: No - Attitude and Relatedness Attitude and Relatedness: Needy Eye Contact: Good - Speech Quality: Unpressured Latencies: Normal Quantity: Appropriate - Mood Patient's Decription of Mood: "Angry" - Affect Observed Affect: Constricted Affect Consistent with: Dysphoria - Thought Process Patient's Thought Process: Coherent, Goal Directed, Over Inclusive Thought Content: No Passive Wish, No Suicidal Planning, No Homicidal Ideation, No Paranoid Ideation - Sensorium Experiencing Hallucinations: No, Sensorium is Clear Type of Hallucinations: Visual: No, Auditory: No, Command: No - Level of Consciousness Level of Consciousness: Alert Orientation: No Intact, No Orientated to Time, No Orientated to Place, No Orientated to Person - Impulse Control Impulse Control: Intact - Insight and Judgement Insight and Judgement: Fair - Group Participation Particating in Group Activities: Yes - Medication Management Medication Management Adherence: Yes Assessment - Assessment Merits Inpatient Hospitalization: For Stabilization, Consolidate Improvements, For Discharge Planning Inpatient DSM-IV Dx: I: adjustment d/o with depressed mood; generalized anxiety d/o; unspecified depressive d/o. II: deferred. III: type 2 DM, HTN. IV: severe stressors r/t finances, social isolation and legal involvement. V: 50 Clinical Impression: Sepideh is a 46yo male with no prior psychiatric history who presents with depressed mood and suicidal ideation. He reports anxiety and cannabis dependence. He is grieving the of his mother who passed in may 2015. He is facing legal consequences due to stealing his sister's credit card. He merits hospitalization for immediate safety and stabilization. He agrees to trial trazodone for sleep instead of mirtazapine. Will continue citalopram and hydroxyzine. Will refer to [facility] outpatient services upon discharge. Plan - Plan Treatment Plan: Name: SEPIDEH MERCHANT Birthdate: 1970 [id number] DC wellbutrin d/t possible allergic reaction (rash). Trial citalopram and continue mirtazapine. Hospitalist service consulted to assist in diabetes management. Nutrition consult entered to assist patient in diet choices. Continue observation q30 min and may have staff pass. Continued Medication Management: Different Medication Medications: Current Medications Acetaminophen (Tylenol Tab*) 650 mg PO Q6H PRN PRN Reason: HEADACHE Atorvastatin Calcium (Lipitor*) 20 mg PO BEDTIME [facility] Last Admin: 01/01/17 20:36 Dose: 20 mg Citalopram Hydrobromide (Celexa Tab*) 20 mg PO DAILY [facility] Last Admin: 01/02/17 08:56 Dose: 20 mg Dextrose (D50w Syringe 50 Ml*) 12.5 gm IV PUSH .FOR FS < 60 - SS PRN PRN Reason: FS < 60 Diphenhydramine HCl (Benadryl Po*) 50 mg PO Q6HR PRN PRN Reason: ANXIETY/ITCHING Fludrocortisone Acetate (Florinef Tab*) 0.1 mg PO DAILY [facility] Last Admin: 01/02/17 08:56 Dose: 0.1 mg Gabapentin (Neurontin Cap(*)) 600 mg PO TID [facility] Last Admin: 01/02/17 14:41 Dose: 600 mg Hydrocortisone (Hytone Cream 1%*) 1 applic TOPICAL QID PRN PRN Reason: ITCHING Last Admin: 01/01/17 19:53 Dose: 1 applic Hydroxyzine HCl (Atarax Tab*) 50 mg PO Q6H PRN PRN Reason: AGITATION/ANXIETY/INSOMNIA Last Admin: 01/02/17 14:40 Dose: 25 mg Insulin Glargine (Lantus(*)) 50 units SUBCUT DAILY [facility] Insulin Human Lispro (Humalog*) 0 units SUBCUT AC [facility] PRN Reason: Protocol Last Admin: 01/02/17 12:05 Dose: 4 units Lactobacillus Rhamnosus (Culturelle*) 1 cap PO DAILY [facility] Last Admin: 01/02/17 08:56 Dose: 1 cap Losartan Potassium (Cozaar Tab*) 25 mg PO DAILY [facility] Last Admin: 01/02/17 08:56 Dose: 25 mg Trazodone 100mg PO BEDTIME PRN PRN Reason: SLEEP - Discharge Plan Discharge Plan: Outpatient Follow Up Outpatient Program: [facility]
[2017-01-02] MEDS ORDERED: traZODone TAB* 100 MG PO PRN (15:20)
--- NOTE | 2017-01-02 16:20 | PN ---
MHU: Group Therapy Note - Service Type Service Type: 10099 Group Psychotherapy - Service Type [id number] Group Psychotherapy. Medication education group. Discussed categories of psychopharmacology, side effects, risks/benefits. Reviewed common misconceptions and facts. Patient participated fully. He asked appropriate questions and was pleasant to peers.
[2017-01-02] MEDS: Atorvastatin* 20 MG TAB PO SCH (21:07)
[2017-01-03] MEDS: hydrOXYzine HCL TAB* 25 MG PO PRN ×2 (05:49→16:05)
[2017-01-03] MEDS ORDERED: Insulin GLARGINE(*) 1 UNITS UNIT SUBCUT SCH (09:00)
[2017-01-03] MEDS: Insulin LISPRO* 1 UNITS UNIT SUBCUT SCH ×3 (09:34→16:45)
[2017-01-03] MEDS: Fludrocortisone Acetate TAB* 0.1 MG PO SCH (09:34)
[2017-01-03] MEDS: Losartan TAB* 25 MG PO SCH (09:35)
[2017-01-03] MEDS: Lactobacillus Acidophilu (GG)* 1 CAP CAP PO SCH (09:35)
[2017-01-03] MEDS: Citalopram TAB* 20 MG PO SCH (09:35)
[2017-01-03] MEDS: Gabapentin CAP(*) 300 MG PO SCH ×2 (09:35→16:04)
--- NOTE | 2017-01-03 11:49 | PN ---
MHU: Group Therapy Note - Service Type Service Type: [id number] Group Psychotherapy - Cognitive Behavioral Group Therapy ( CBT):Patient was attentive and participatory in CBT programming this morning, and remained in good behavioral control. Patient expressed positive insights regarding relevant treatment interventions and goals.
--- NOTE | 2017-01-03 15:21 | PN ---
Subjective Date of Service: 01/03/17 Interval History: Mr. Comer was sitting in the common area and was very withdrawn. When asked if I could talk with him, the patient states, "Why? Nobody cares." He reports that his rash no longer itchs. He also reports banging his toe and that it is purple but refuses to allow me to look, stating, "The other doctor didn't care so I don't care." No other acute complaints expressed. Family History: Unchanged from Admission Social History: Unchanged from Admission Past Medical History: Unchanged from Admission Objective Active Medications: Acetaminophen (Tylenol Tab*) 650 mg PO Q6H PRN PRN Reason: HEADACHE Atorvastatin Calcium (Lipitor*) 20 mg PO BEDTIME [facility] Last Admin: 01/02/17 21:07 Dose: 20 mg Citalopram Hydrobromide (Celexa Tab*) 20 mg PO DAILY [facility] Last Admin: 01/03/17 09:35 Dose: 20 mg Dextrose (D50w Syringe 50 Ml*) 12.5 gm IV PUSH .FOR FS < 60 - SS PRN PRN Reason: FS < 60 Diphenhydramine HCl (Benadryl Po*) 50 mg PO Q6HR PRN PRN Reason: ANXIETY/ITCHING Fludrocortisone Acetate (Florinef Tab*) 0.1 mg PO DAILY [facility] Last Admin: 01/03/17 09:34 Dose: 0.1 mg Gabapentin (Neurontin Cap(*)) 600 mg PO TID [facility] Last Admin: 01/03/17 09:35 Dose: 600 mg Hydrocortisone (Hytone Cream 1%*) 1 applic TOPICAL QID PRN PRN Reason: ITCHING Last Admin: 01/01/17 19:53 Dose: 1 applic Hydroxyzine HCl (Atarax Tab*) 50 mg PO Q6H PRN PRN Reason: AGITATION/ANXIETY/INSOMNIA Last Admin: 01/03/17 05:49 Dose: 50 mg Insulin Glargine (Lantus(*)) 50 units SUBCUT DAILY [facility] Last Admin: 01/03/17 09:55 Dose: 50 unit Insulin Human Lispro (Humalog*) 0 units SUBCUT [facility] PRN Reason: Protocol Last Admin: 01/03/17 12:19 Dose: 4 units Lactobacillus Rhamnosus (Culturelle*) 1 cap PO DAILY [facility] Last Admin: 01/03/17 09:35 Dose: 1 cap Losartan Potassium (Cozaar Tab*) 25 mg PO DAILY [facility] Last Admin: 01/03/17 09:35 Dose: 25 mg Trazodone HCl (Desyrel Tab*) 100 mg PO BEDTIME PRN PRN Reason: INSOMNIA Last Admin: 01/02/17 21:10 Dose: 100 mg Vital Signs 01/02/17 01/02/17 01/03/17 16:41 21:07 07:20 Temperature 97.8 F Pulse Rate 73 Respiratory 20 16 16 Rate Blood Pressure 100/60 (mmHg) O2 Sat by Pulse 98 Oximetry 01/03/17 01/03/17 01/03/17 09:35 11:30 11:35 Temperature Pulse Rate Respiratory 16 16 16 Rate Blood Pressure (mmHg) O2 Sat by Pulse Oximetry Oxygen Devices in Use Now: None Appearance: Male patient, sitting at table, standoffish, uncooperative with exam Neurological: Alert and Oriented x 3 - irritable Result Diagrams: 12/31/16 14:30 01/01/17 08:22 Additional Lab and Data: Lab Results 12/27/16 Range/Units 17:20 POC Glucose (mg/dL) 302 H (70-100) mg/dL Assess/Plan/Problems-Billing Assessment: Mr. Comer is a 46 yo male with a PMH of DM2 with neuropathy and HTN who was admitted for suicidal ideation and worsening depression; hospital medicine following for labile blood sugars. - Patient Problems (1) Depression with suicidal ideation Code(s): F32.9 - MAJOR DEPRESSIVE DISORDER, SINGLE EPISODE, UNSPECIFIED; R45.851 - SUICIDAL IDEATIONS Comment: Management per psychiatry team (2) Diabetes mellitus Code(s): E11.9 - TYPE 2 DIABETES MELLITUS WITHOUT COMPLICATIONS Comment: Type 2 diabetes with neuropathy Continue reduced dose Lantus and Lispro SSI with meals BG labile but no concerning episodes of hypoglycemia Consistent carb diet (3) Orthostatic hypotension Code(s): I95.1 - ORTHOSTATIC HYPOTENSION Comment: Patient reports hx of autonomic orthostatic hypotension Continue home Florinef. (4) Diabetic neuropathy Code(s): E11.40 - TYPE 2 DIABETES MELLITUS WITH DIABETIC NEUROPATHY, UNSP Comment: Continue home gabapentin. (5) Rash Code(s): R21 - RASH AND OTHER NONSPECIFIC SKIN ERUPTION Comment: Appears improved, no longer itching Etiology unclear, possible contact dermatitis May also be medication mediated (just started Wellbutrin) Patient now on Celexa Continue prn antihistamines, topical hydrocortisone cream (6) Diarrhea Code(s): R19.7 - DIARRHEA, UNSPECIFIED Comment: Intermittent since November Patient denies sick contacts or changes in diet Does not appear infectious, no abd pain or n/v, WBC normal, pt afebrile Start probiotic Patient not willing to provide stool culture Status and Disposition: Dispo per [facility]. Will sign off for now, please call if there are future needs or concerns.
[2017-01-03 16:15] VITALS: BP 124/71
--- NOTE | 2017-01-04 14:58 | DS ---
CC: [facility]; Dr. Hernandez * DISCHARGE SUMMARY: DATE OF ADMISSION: 12/27/16 DATE OF DISCHARGE: 01/03/17 SUPERVISING PSYCHIATRIST: Dr. Shelton Schulte * (DICTATED BY NOE LIAO NP) DISCHARGE DIAGNOSES: Elberon I: Major depressive disorder, moderate recurrent, generalized anxiety disorder, rule out depressive disorder related to general medical condition, type 1 diabetes. Elberon II: Consider cluster B traits. Elberon III: Type 1 diabetes mellitus, orthostatic hypotension, peripheral neuropathy. Elberon IV: Stressors related to financial strain, social isolation, interpersonal relationships. Elberon V: 60. CONDITION AT TIME OF DISCHARGE: Improved. Over the course of the week, Ace was noted to have a much brighter affect, he was pleasant and interactive. He was fully participating in therapeutic milieu and programming. He was receptive to psycho education and patient education from treatment team. He was agreeable to follow up with referral to [facility]. He received hospitalist service for his poorly controlled diabetes. He received a nutrition consult to help him make better choices in regards to diabetic diet. He stated understanding of the connection between poorly controlled diabetes and mood disturbances. His blood sugars were much more consistent towards the end of the week. He was noted to be more irritable during group and when other peers were disruptive or when the schedule was not followed perfectly. He had some contact with family members including his daughter. He had reached out to family members and they did not appear to return his calls. It is unclear if they might have tried to do so when the phones were off during group or sleep hours. Ace completed an MMPI , this was noted to denote over-exaggeration of symptoms and likely some Elberon II vulnerabilities. MENTAL STATUS EXAM: The patient is moderate built, small-statured 46-year-old male. He is dressed in his own clothing. He appears stated age. He is pleasant and cooperative, somewhat help rejecting, participates fully in interview. No psychomotor activity or abnormality is noted. He is alert and oriented x3. His concentration is good. His memory is 3/3. His mood is "alright". His affect is full range. Speech is soft and articulate. His thought process is logical, coherent, goal directed. Thought content is negative for SI. His insight and judgment is fair. His fund of knowledge is adequate. DISCHARGE INSTRUCTIONS: Discharge instructions were given to the patient by nursing staff. MEDICATIONS: Medications were e-scripted to [facility] in [place]: 1. Citalopram 20 mg p.o. daily, #14. 2. Hydroxyzine 50 mg p.o. q.6 hours p.r.n. agitation, anxiety, insomnia, #28. 3. Trazodone 100 mg p.o. q.h.s. p.r.n. insomnia, #14. His diabetic neuropathy medications will continue to be prescribed by his primary care provider, Dr. Hernandez. DIET: Diabetic. ACTIVITY: Ambulation as tolerated. There is a pending stool sample at time of discharge due to complaints of rectal bleeding. This can be followed up with his primary care provider if needed. Tobacco cessation is not applicable. HOSPITAL COURSE: A. Reason for admission: Patient was brought to the emergency room with the help of law enforcement due to verbalizing vague suicidal thoughts to his roommate. Patient was recently arrested for stealing from his younger sister, he had utilized her credit card without her knowledge and charged approximately 500 dollars without her knowledge. There is a court date in January. B. Psychiatric treatment rendered: Patient was admitted to adult behavioral services unit on voluntary status. His code status was full. He was placed on 15- minute checks. Supportive milieu, individual, and group psycho education was initiated. Over the coarse of the first few days of admission, it was noted that he had very labile blood sugars and was often symptomatic. Hospitalist was consulted and diabetic medications were changed. Patient was also more compliant with diabetic diet and his blood sugars changed to normal range. Patient reported poor sleep for years. He accepted a trial of mirtazapine and Wellbutrin. When Wellbutrin likely caused a rash, this was discontinued. He agreed to a trial of citalopram. Sleep continued to be poor. Mirtazapine was discontinued and he agreed to a trial of trazodone. Sleep was much improved. Mood was improved. He became increasingly irritable on the unit when peers were disruptive in groups. He expressed irritability and agitation when programming was not timely. He expressed interest to remain on the unit in order to gain more coping skills. He was receptive to staff feedback that remaining on the unit is proving to cause more distress. He denied suicidal ideations. He expressed some concern about returning home and being lonely. He was receptive to suggestions by staff for goal planning. I believe he will be a very good candidate for outpatient therapy as he is receptive to one-on-one attention. Patient was given a choice to discharge on Friday or remain until Friday morning. He ultimately decided to leave on Friday. He was provided a Medicaid Cab home. He was encouraged to return to the ED if not feeling safe. He was safe on all checks and denied risk for self- harm. He is encouraged to follow up with his primary care provider about medical problems and also to consider a referral to an rescue instructor for poorly controlled diabetes. Overall, Ace was very receptive to psychiatric treatment and unit programming. We hope that outpatient services are equally helpful to him. NOE LIAO NP [id number]/CPS #: [id number] NUHA
== END 2017-01-03 18:00 | disposition home or self-care (01) | DRG 751 ==
LOC: ED 17:11 → BSU 22:53
PROVIDERS: ADMIT Psychiatry & Neurology Psychiatry; ATTEND Psychiatry & Neurology Psychiatry
DX: F33.1 Major depressive disorder, recurrent, moderate (principal); E11.42 Type 2 diabetes mellitus with diabetic polyneuropathy; R45.851 Suicidal ideations; F41.1 Generalized anxiety disorder; I95.1 Orthostatic hypotension; R21 Rash and other nonspecific skin eruption; R19.7 Diarrhea, unspecified; I10 Essential (primary) hypertension; Z80.9 Family history of malignant neoplasm, unspecified; Z79.4 Long term (current) use of insulin; Z79.899 Other long term (current) drug therapy; Z83.3 Family history of diabetes mellitus; Z82.49 Family history of ischemic heart disease and other diseases of the circulatory system
CPT/HCPCS: 36415; 80048; 80053; 80076; 80307; 80320; 80329; 81003; 82150; 82947; 83036; 83690; 84443; 85025; 90853; 99222; 99231; 99238; A9270-GY; G0480

== ENCOUNTER 2017-01-14 18:30 | Inpatient (IN) | payer OTHER ==
[2017-01-14] MEDS ORDERED: NS 0.9% 1000 ML* 3,000 ML IV ONE (20:46)
[2017-01-14] MEDS ORDERED: Ondansetron INJ* 2 MG/ML VIAL IV ONE ×2 (20:46→22:41)
[2017-01-14] MEDS ORDERED: Pantoprazole IV* 40 MG IV ONE (20:46)
[2017-01-14 21:07] LABS: Hematocrit 46 % (42-52); Hemoglobin 15.6 g/dl (14.0-18.0); Mean Corpuscular HGB Conc 34 g/dl (31-36); Mean Corpuscular Hemoglobin 30 pg (27-31); Mean Corpuscular Volume 89 fL (80-94); Mean Platelet Volume 8 um3 (7.4-10.4); Red Cell Distribution Width 14 % (10.5-15); White Blood Count 10.1 10^3/ul (3.5-10.8)
[2017-01-14 21:21] LABS: Albumin 4.2 g/dL (3.2-5.2); BUN/Creatinine Ratio 31.8 (8-20); Calcium 10.6 mg/dL (8.6-10.3); EGFR African American 95.3 (>60); EGFR Non-African American 74.1 (>60); Globulin 4.2 g/dL (2-4); Potassium 4.6 mmol/L (3.5-5.0); Total Bilirubin 0.6 mg/dL (0.2-1.0); Total Protein 8.4 g/dL (6.4-8.9)
[2017-01-14 21:22] LABS: Troponin I 0.01 ng/mL (<0.04)
--- NOTE | 2017-01-14 21:35 | RAD ---
Indication: Vomiting for 2 days. Diabetic. Comparison: No relevant prior exams available on the [facility] PACS for comparison. Technique: PA chest radiograph 2118 hours Report: Clear lungs and pleural spaces. Negative for pneumothorax. The heart, pulmonary vasculature, and mediastinal contours are unremarkable. Negative for pneumomediastinum. No free air evident. Deep the diaphragm. Unremarkable osseous structures and soft tissue contours. IMPRESSION: No evidence for acute intrathoracic disease.
--- NOTE | 2017-01-14 21:37 | RAD ---
Indication: Vomiting. Comparison: PA chest radiograph of the same date. Technique: Supine view of the abdomen. Report: Negative for free air beneath the diaphragm on the PA chest radiograph. Unremarkable bowel gas pattern. Moderate stool in the colon with moderate significant rectal distension. Vascular calcifications at the pelvis. Unremarkable soft tissue contours. IMPRESSION: No acute abdominal pelvic pathologic process evident. Moderate stool in the colon with moderate rectal distention.
[2017-01-14] MEDS ORDERED: Insulin REGULAR(*) 1 UNITS UNIT IV PUSH ONE (22:42)
[2017-01-14] MEDS ORDERED: Morphine INJ* 2 MG/ML 1 ML SYRINGE IV ONE (23:05)
[2017-01-14] MEDS ORDERED: Iodixanol* (CONTRAST) 320 MG/ML 100 ML SDV IV ONE (23:06)
[2017-01-14] MEDS ORDERED: NS 0.9% 1000 ML* 1,000 ML IV ONE (23:33)
[2017-01-14] MEDS ORDERED: LORazepam INJ* 2 MG/ML 1 ML VIAL IV PUSH ONE (23:33)
[2017-01-14] MEDS ORDERED: Dextrose 50% Syringe 50 ML* 25 GM/50 ML SYRINGE IV PUSH PRN (23:35)
[2017-01-14] MEDS ORDERED: Ondansetron INJ* 2 MG/ML VIAL IV PRN (23:37)
[2017-01-14] MEDS ORDERED: Insulin GLARGINE(*) 1 UNITS UNIT SUBCUT SCH (23:45)
[2017-01-14] MEDS ORDERED: Pantoprazole IV* 40 MG IV SCH (23:45)
[2017-01-14] MEDS ORDERED: Lidocaine 2% VISCOUS* 15 ML UDC PO ONE (23:46)
[2017-01-14] MEDS ORDERED: Morphine INJ* 2 MG/ML 1 ML SYRINGE IV PRN (23:57)
[2017-01-15] MEDS ORDERED: Al Hydrox/Mg Hydrox/Simet LIQ* 30 ML UDC PO ONE (00:03)
[2017-01-15 01:00] LABS: Urine Bacteria Absent (Absent); Urine Bilirubin Negative (Negative); Urine Glucose 3+(>=500 mg/dL) (Negative); Urine Nitrite Negative (Negative)
--- NOTE | 2017-01-15 02:29 | HP ---
CC: Dr. Hernandez * ADMISSION HISTORY AND PHYSICAL: DATE OF ADMISSION: PRIMARY CARE PROVIDER: Dr. Hernandez. HEALTHCARE PROXY: Daughter Ernestina. CODE STATUS: Full. SOURCE OF INFORMATION: History obtained from interview with the patient. RELIABILITY: Good. CHIEF COMPLAINT: Vomiting and abdominal pain. HISTORY OF PRESENT ILLNESS: This is a 46-year-old man with a past medical history of orthostatic hypotension, type 2 diabetes with complications including peripheral neuropathy as well as two toes amputation, been in his usual state of health up until Friday Morning, 3 days prior to presentation. He woke up and felt well all day; however, in the evening developed sudden- onset epigastric pain described as cramping, constant, nonradiating, after which he developed the hot and developed emesis. He has been vomiting approximately 1 time every hour that has become brown in character since that time. He has had very little p.o. intake since that time. He feels this has felt similar to when his foot was infected and he had it amputated. His last bowel movement was today while waiting in the waiting room. He notes decreased flatus since the time of this onset. Also, described a burning in his chest after the vomiting, described like acid in his chest. Denies any fevers, headaches, dizziness, although does endorse increased lower extremity swelling for 1 week. He denies any changes in recent medications or travel. No changes in his usual food intake other than decreased appetite and inability to eat over the last 2 days. PAST MEDICAL HISTORY: Includes type 2 diabetes mellitus, insulin dependent; recent hospital stay at [facility] in December 2016 with major depression disorder or suicidal ideation; diabetic neuropathy in his hands and his legs; orthostatic hypotension; first and second toe left amputation; laparoscopic cholecystectomy , left knee arthroscopy. MEDICATIONS: The patient is unable to provide an accurate medication list. He does fill his medications at [facility] in [place]. Medications do include: 1. Florinef, previous dose in the hospital was 0.1 mg daily. 2. Tresiba 55 units daily. 3. Gabapentin 600 mg 3 times a day. 4. He was also discharged from [facility] with citalopram 20 mg, however, 14 tabs as well as trazodone 100 mg in the evening as needed with 14 tabs. ALLERGIES: No known drug allergies. FAMILY HISTORY: Brother with lung cancer and mother with an OR at age 66, father with type 2 diabetes and from pulmonary fibrosis. SOCIAL HISTORY: No tobacco, approximately 1 drink of alcohol per month, smokes marijuana 7 days per week. REVIEW OF SYSTEMS: As per HPI, otherwise all other systems negative. PHYSICAL EXAMINATION GENERAL: Sitting up 40 degrees in bed, interactive, distress from nausea, although no cardiopulmonary distress. VITAL SIGNS: In the emergency room, 180/85, heart rate 94, respiratory rate is 18, T-max 98.2, and 100% on room air. HEENT: Oropharynx clear. He has dry mucous membranes. His sclerae are anicteric. NECK: He has nonelevated JVD. No cervical or supraclavicular lymphadenopathy. LUNGS: Clear to auscultation. HEART: Regular rate and rhythm. No murmurs, rubs, or gallops. ABDOMEN: Soft, nontender, and nondistended. He has hypoactive bowel sounds throughout. EXTREMITIES: Warm and well-perfused. There is no cyanosis, clubbing, or edema. He has skin breakdown on pretibial region bilaterally with old ulcerations healing. NEUROLOGIC: He is alert and oriented x3. His cranial nerves are intact. DIAGNOSTIC STUDIES/LAB DATA: Pertinent laboratory data reviewed. Lactic acid 3.7 on presentation, bicarb 28, anion gap of 18, BUN 34, creatinine 1.07. White blood cell count 10, hemoglobin 15.6, platelets 276. Pertinent imaging studies: 1. Abdominal x-ray: No acute abdominopelvic pathologic process evident. Moderate stool in the colon with moderate rectal distention. 2. Chest x-ray: No evidence for acute intrathoracic disease. 3. EKG is sinus tachycardia at 94. Normal limit axis and intervals. No ST or T- wave changes. ASSESSMENT AND PLAN: This is a 46-year-old man presenting to the hospital with 2 days of intractable nausea, vomiting, and abdominal pain. 1. Intractable nausea, vomiting. Gastroparesis in the setting of diabetes is a possibility; however, seems less likely in the setting of rapid onset. Certainly, a small bowel obstruction is concerning, not evident on a plain film. We would like to pursue CAT scan with oral contrast; however, unable to tolerate oral contrast at this time. We will attempt to modulate and control his nausea at this time with addition of low-dose IV Ativan and unable to tolerate p.o. Shortly we will pursue a CT abdomen and pelvis when nausea is better controlled. Continue with Zofran p.r.n. Can add additional agents if needed. Ice chip only diet. We would not place NG tube at this time, as his nausea and vomiting have seemed to abated with medications; however, if continues, we will consider NG tube. 2. Type 2 diabetes. Unable to receive Tresiba with decreased diet, we will decrease Lantus dose to 40 and continue insulin sliding scale as needed. 3. Orthostatic hypotension. Holding Florinef currently in the setting of hypertension. 4. Hypertension. The patient denies antihypertensive agents. Suspect elevated in the setting of distress from nausea, vomiting, and pain. 5. Burning pain. Continue proton pump inhibitor as well as morphine p.r.n. for abdominal pain. 6. Depression. Unclear that he was continued on Celexa on discharge. Currently, at this time not tolerating oral medications. We will hold at this time. We will restart after better medication reconciliation possible in the morning. 7. DVT prophylaxis. Heparin subcu. 8. Code status. Full. [id number]/CPS #: [id number] MTDD
[2017-01-15] MEDS: Insulin LISPRO* 1 UNITS UNIT SUBCUT SCH ×5 (02:38→20:51)
[2017-01-15] MEDS ORDERED: LORazepam INJ* 2 MG/ML 1 ML VIAL IV PUSH ONE ×2 (02:48→21:12)
[2017-01-15] MEDS: Heparin VIAL(*) 5000 UNITS/ML VIAL (FIVE THOUSAND) SUBCUT SCH ×3 (06:02→21:45)
[2017-01-15 06:19] LABS: Hematocrit 36 % (42-52); Hemoglobin 12.5 g/dl (14.0-18.0); Mean Corpuscular HGB Conc 35 g/dl (31-36); Mean Corpuscular Hemoglobin 30 pg (27-31); Mean Corpuscular Volume 87 fL (80-94); Mean Platelet Volume 8 um3 (7.4-10.4); Red Blood Count 4.16 10^6/ul (4.0-5.4); Red Cell Distribution Width 14 % (10.5-15); White Blood Count 9.4 10^3/ul (3.5-10.8)
[2017-01-15 06:38] LABS: BUN/Creatinine Ratio 39.1 (8-20); Calcium 8.5 mg/dL (8.6-10.3); EGFR African American 113.4 (>60); EGFR Non-African American 88.2 (>60); Potassium 3.9 mmol/L (3.5-5.0)
--- NOTE | 2017-01-15 06:45 | ED ---
Davide Cam Rebecca, scribed for Mina Figueroa on 01/14/17 at 2050 . HPI Diabetic - HPI Summary HPI Summary: Pt is a 46 y/o M with a PMHx of DM who presents to ED c/o vomiting for 2 days. Sx aggravated and alleviated by nothing. Additionally notes burning sensation in the esophagus secondary to edemsis. Denies fever, CP, SOB, abdominal pain and diarrhea. Is able to pass gas and have BM. - History Of Current Complaint Chief Complaint: EDDiabeticProb Time Seen by Provider: 01/14/17 20:28 Hx Obtained From: Patient Onset/Duration: Lasting Days - 2 days, Still Present Character: Other - Vomiting Aggravating: Nothing Alleviating: Nothing - Allergies/Home Medications Allergies/Adverse Reactions: Allergies Allergy/AdvReac Type Severity Reaction Status Date / Time No Known Allergies Allergy Verified 12/28/16 00:13 PMH/Surg Hx/FS Hx/Imm Hx Endocrine/Hematology History: Reports: Hx Diabetes - Type 2 DM Cardiovascular History: Reports: Hx Hypotension - Orthostatic Hypotension Sensory History: Reports: Hx Contacts or Glasses Denies: Hx Hearing Aid Opthamlomology History: Reports: Hx Contacts or Glasses Psychiatric History: Denies: Hx Eating Disorder, Hx of Violent Episodes Against Others - Surgical History Surgery Procedure, Year, and Place: toe amputation, gall bladder removal 2013, surgery left knee age 11 Infectious Disease History: Denies: Traveled Outside the [place] in Last 30 Days - Family History Known Family History: Positive: Cardiac Disease, Hypertension, Diabetes - Social History Alcohol Use: None Substance Use Type: Reports: Marijuana Smoking Status (MU): Never Smoked Tobacco Amount Used/How Often: pt. has never used any kind of tobacco ever. Have You Smoked in the Last Year: No Review of Systems Negative: Fever Positive: Other - Esophageal burning secondary to vomiting Negative: Chest Pain Negative: Shortness Of Breath Positive: Vomiting. Negative: Abdominal Pain, Diarrhea All Other Systems Reviewed And Are Negative: Yes Physical Exam - Summary Physical Exam Summary: Appearance: Well appearing, no pain distress Skin: warm, dry, reflects adequate perfusion Head/face: normal Eyes: EOMI, SUSANA ENT: dry mucous membranes Neck: supple, nontender Respiratory: CTA, breath sounds present Cardiovascular: RRR, pulses symmetrical Abdomen: nontender, soft Bowel: present Musculoskeletal: normal, strength/ROM intact Neuro: normal, sensory motor intact, A&Ox3 Triage Information Reviewed: Yes Vital Signs On Initial Exam: Initial Vitals Temp Pulse Resp BP Pulse Ox 96.8 F 93 20 145/89 96 01/14/17 18:34 01/14/17 18:34 01/14/17 18:34 01/14/17 18:34 01/14/17 18:34 Vital Signs Reviewed: Yes Diagnostics - Vital Signs Vital Signs Temp Pulse Resp BP Pulse Ox 01/14/17 18:34 96.8 F 93 20 145/89 96 - Laboratory Lab Results: Lab Results 01/14/17 Range/Units 18:39 POC Glucose (mg/dL) 304 H (70-100) mg/dL Result Diagrams: 01/14/17 20:55 01/14/17 20:55 Lab Statement: Any lab studies that have been ordered have been reviewed, and results considered in the medical decision making process. - Radiology KUB Xray Interpretation: No Acute Changes - No acute abdominal pelvic pathologic process evident. Moderate stool in the colon with moderate rectal distention. ED physician reviewed radiology report and agrees. Radiology Interpretation Completed By: Radiologist CXR Xray Interpretation: No Acute Changes - No evidence for acute intrathoracic disease. ED physician reviewed radiology report and agrees. Radiology Interpretation Completed By: Radiologist - EKG 2118 Cardiac Rate: NL - 94 bpm EKG Rhythm: Sinus Rhythm EKG Interpretation: No acute changes Re-Evaluation - Re-Evaluation First Eval Re-Evaluation Time: 23:53 Comment: Discussed results thus far and admission plan Diabetic Course/Dx - Course Assessment/Plan: Pt is a 46 y/o M with a PMHx of DM who presents to ED c/o vomiting for 2 days. Sx aggravated and alleviated by nothing. Additionally notes burning sensation in the esophagus secondary to edemsis. Denies fever, CP , SOB, abdominal pain and diarrhea. Is able to pass gas and have BM. KUB and CXR reveal no acute findings. EKG is sinus rhythm with no acute changes. Lab work was done. Initial lactic acid of 3.7 and repeat of 2.0. POC glucose of 304. In the ED course, pt received fluids, insulin, Zofran, morphine and Protonix. Discussed care of pt with Dr. Sharif Webb (hospitalist) who accepts pt for admision and requetss a CT. He will be admitted with Dx of vomiting, dehydration, DM and r/o gastroparesis. He understands and agrees. Elevated BP noted and advised to f/u with PCP. - Diagnoses Provider Diagnoses: Vomiting, Dehydration, Diabetes, r/o gastroparesis - Physician Notifications Discussed Care Of Patient With: Sharif Webb Time Discussed With Above Provider: 22:55 Instructed by Provider To: Other - Accepts pt for admission and requests a CT abdomen. Discharge - Discharge Plan Condition: Stable Disposition: ADMITTED TO [facility] documentation as recorded by the Davide antoine Rebecca accurately reflects the service I personally performed and the decisions made by Henry kan Emmanuel.
[2017-01-15] MEDS ORDERED: Pantoprazole IV* 40 MG IV SCH (09:00)
[2017-01-15] MEDS ORDERED: Influenza VAC *QUAD* 2017-18* 0.5 ML SYRINGE IM ONE (09:00)
[2017-01-15] MEDS ORDERED: hydrOXYzine HCL TAB* 50 MG PO PRN (10:23)
[2017-01-15] MEDS ORDERED: Insulin GLARGINE(*) 1 UNITS UNIT SUBCUT ONE (11:30)
[2017-01-15] MEDS: Fludrocortisone Acetate TAB* 0.1 MG PO SCH (12:21)
[2017-01-15] MEDS: Citalopram TAB* 20 MG PO SCH (12:21)
[2017-01-15] MEDS: Ondansetron INJ* 2 MG/ML VIAL IV PRN ×2 (14:54→20:02)
[2017-01-15] MEDS: Morphine INJ* 2 MG/ML 1 ML SYRINGE IV PRN ×2 (14:54→19:15)
[2017-01-15] MEDS: D5W 1000 ML BAG* 1,000 ML IV SCH (15:05)
--- NOTE | 2017-01-15 16:05 | RAD ---
INDICATION: Abdominal pain. COMPARISON: Comparison is made with a prior study from January 14, 2017. TECHNIQUE: Frontal supine films of the abdomen were obtained. FINDINGS: The small bowel and colon appear nondistended. No significant abnormal calcifications are seen. IMPRESSION: NO EVIDENCE FOR OBSTRUCTION.
[2017-01-15] MEDS: Pantoprazole IV* 40 MG IV SCH (17:45)
[2017-01-15] MEDS ORDERED: hydrALAZINE IV* 20 MG/ML VIAL IV SLOW PU ONE (21:11)
[2017-01-16] MEDS: Ondansetron INJ* 2 MG/ML VIAL IV PRN ×3 (01:46→20:55)
[2017-01-16] MEDS: Morphine INJ* 2 MG/ML 1 ML SYRINGE IV PRN ×2 (01:49→11:43)
[2017-01-16] MEDS: traZODone TAB* 100 MG PO PRN ×2 (01:58→20:55)
[2017-01-16] MEDS: D5W 1000 ML BAG* 1,000 ML IV SCH (02:01)
[2017-01-16] MEDS: Pantoprazole IV* 40 MG IV SCH (05:13)
[2017-01-16] MEDS: Heparin VIAL(*) 5000 UNITS/ML VIAL (FIVE THOUSAND) SUBCUT SCH ×3 (05:16→20:55)
[2017-01-16 05:49] LABS: BUN/Creatinine Ratio 24.7 (8-20); EGFR African American 139.3 (>60); EGFR Non-African American 108.3 (>60); Potassium 3.2 mmol/L (3.5-5.0)
[2017-01-16] MEDS: Fludrocortisone Acetate TAB* 0.1 MG PO SCH (07:29)
[2017-01-16] MEDS: Citalopram TAB* 20 MG PO SCH (07:29)
[2017-01-16] MEDS: Insulin LISPRO* 1 UNITS UNIT SUBCUT SCH ×4 (07:30→21:00)
[2017-01-16] MEDS ORDERED: Insulin GLARGINE(*) 1 UNITS UNIT SUBCUT SCH (08:00)
[2017-01-16] MEDS: NS 0.9% 1000 ML* 1,000 ML IV SCH (09:23)
[2017-01-16] MEDS ORDERED: Iodixanol* (CONTRAST) 320 MG/ML 100 ML SDV IV ONE (10:34)
[2017-01-16] MEDS: KCL 20 MEQ/100 ML IVPREMIX* 20 MEQ/100 ML BAG IV SCH ×2 (11:28→16:17)
--- NOTE | 2017-01-16 11:42 | RAD ---
Indication: Nausea and vomiting evaluate for small bowel obstruction Contrast: Administered 100.1 ml of VISIPAQUE 320 mg/ml CT of the abdomen and pelvis was performed after oral and IV contrast administration. The lung bases imaging no pleural fluid, nodules or masses. The heart demonstrates coronary artery calcifications. No pericardial effusion is noted. Liver is normal in size. No focal lesions or intrahepatic ductal dilatation is noted. The spleen is normal in size. The patient is status post cholecystectomy. The pancreas indicates no mass or pancreatic duct dilatation. There is a duodenal diverticulum noted. No adrenal lesions are noted. The kidneys demonstrate symmetric nephrograms. The retroperitoneal lymphadenopathy is noted. No dilated loops of bowel are noted. CT of the pelvis demonstrates no dilated loops of bowel are noted. The urinary bladder is unremarkable. No hernias are noted. Diverticulosis without definite evidence of diverticulitis is noted. The prostate is otherwise unremarkable. IMPRESSION: Patient is status post cholecystectomy. No abnormal masses or fluid collections are noted. No definite evidence of bowel obstruction is noted.
[2017-01-16] MEDS: amLODIPine TAB* 5 MG PO SCH (13:51)
[2017-01-16] MEDS ORDERED: Simethicone CHEW TAB* 80 MG PO PRN (15:41)
--- NOTE | 2017-01-16 15:44 | PN ---
Subjective Date of Service: 01/16/17 Interval History: pt c/o intermittent abd cramping, periumbilical, nausea, but no vomitting since AM Objective Active Medications: Amlodipine Besylate (Norvasc Tab*) 5 mg PO DAILY [facility] Last Admin: 01/16/17 13:51 Dose: 5 mg Citalopram Hydrobromide (Celexa Tab*) 20 mg PO QAM [facility] Last Admin: 01/16/17 07:29 Dose: 20 mg Dextrose (D50w Syringe 50 Ml*) 12.5 gm IV PUSH .FOR FS < 60 - SS PRN PRN Reason: FS < 60 Fludrocortisone Acetate (Florinef Tab*) 0.1 mg PO QAM [facility] Last Admin: 01/16/17 07:29 Dose: 0.1 mg Heparin Sodium (Porcine) (Heparin Vial(*)) 5,000 units SUBCUT Q8HR [facility] Last Admin: 01/16/17 13:51 Dose: 5,000 units Hydroxyzine HCl (Atarax Tab*) 50 mg PO Q6H PRN PRN Reason: AGITATION/ANXIETY/INSOMNIA Sodium Chloride (Ns 0.9% 1000 Ml*) 1,000 mls @ 100 mls/hr IV PER RATE [facility] Last Admin: 01/16/17 09:23 Dose: 100 mls/hr Insulin Glargine (Lantus(*)) 20 units SUBCUT Q24H [facility] Insulin Human Lispro (Humalog*) 0 units SUBCUT ACHS [facility] PRN Reason: Protocol Last Admin: 01/16/17 12:00 Dose: Not Given Morphine Sulfate (Morphine Inj (Syringe)*) 2 mg IV Q4H PRN PRN Reason: PAIN Last Admin: 01/16/17 11:43 Dose: 2 mg Ondansetron HCl (Zofran Inj*) 4 mg IV Q4H PRN PRN Reason: NAUSEA/VOMITING Last Admin: 01/16/17 07:26 Dose: 4 mg Pantoprazole Sodium (Protonix Iv*) 40 mg IV Q12H [facility] Last Admin: 01/16/17 05:13 Dose: 40 mg Trazodone HCl (Desyrel Tab*) 100 mg PO BEDTIME PRN PRN Reason: INSOMNIA Last Admin: 01/16/17 01:58 Dose: 100 mg Vital Signs 09/10/2601/15/17 01/15/17 19:15 19:49 20:00 Temperature 98.5 F Pulse Rate 72 Respiratory 19 20 19 Rate Blood Pressure 172/89 (mmHg) O2 Sat by Pulse 97 Oximetry 01/15/17 01/15/17 01/15/17 20:15 21:07 21:46 Temperature Pulse Rate Respiratory 18 17 Rate Blood Pressure 182/90 (mmHg) O2 Sat by Pulse Oximetry 01/15/17 01/15/17 01/16/17 22:46 23:15 01:49 Temperature 97.4 F Pulse Rate 71 Respiratory 16 14 17 Rate Blood Pressure 132/68 (mmHg) O2 Sat by Pulse 97 Oximetry 01/16/17 01/16/17 01/16/17 02:49 03:54 07:20 Temperature 97.4 F 97.8 F Pulse Rate 69 68 Respiratory 16 15 18 Rate Blood Pressure 131/74 137/75 (mmHg) O2 Sat by Pulse 96 97 Oximetry 01/16/17 01/16/17 01/16/17 08:00 11:35 11:40 Temperature 97.9 F 97.9 F Pulse Rate 70 70 Respiratory 18 18 20 Rate Blood Pressure 170/90 170/85 (mmHg) O2 Sat by Pulse 98 98 Oximetry 01/16/17 01/16/17 01/16/17 11:43 12:43 12:47 Temperature Pulse Rate Respiratory 18 18 Rate Blood Pressure 176/89 (mmHg) O2 Sat by Pulse Oximetry 01/16/17 01/16/17 13:12 15:09 Temperature 98.1 F Pulse Rate 74 Respiratory 18 Rate Blood Pressure 176/84 166/93 (mmHg) O2 Sat by Pulse Oximetry Oxygen Devices in Use Now: None Appearance: 46 yo M in NAD, aAOx3 Eyes: No Scleral Icterus, PERRLA Ears/Nose/Mouth/Throat: NL Teeth, Lips, Gums, Mucous Membranes Moist Neck: NL Appearance and Movements; NL JVP, Trachea Midline Respiratory: Symmetrical Chest Expansion and Respiratory Effort, Clear to Auscultation Cardiovascular: NL Sounds; No Murmurs; No JVD, RRR Abdominal: - - mild abd tenderness in epigastrium , no ebound, no guarding, BS+ Lymphatic: No Cervical Adenopathy Extremities: No Edema, No Clubbing, Cyanosis Skin: No Rash or Ulcers, No Nodules or Sclerosis Neurological: Alert and Oriented x 3, NL Muscle Strength and Tone Result Diagrams: 01/15/17 06:05 01/16/17 05:01 Additional Lab and Data: Lab Results 01/14/17 Range/Units 18:39 POC Glucose (mg/dL) 304 H (70-100) mg/dL Assess/Plan/Problems-Billing Assessment: 46 yo M with h/o depression, DM, orthostatic hypotension presents with abd pain - Patient Problems (1) Abdominal pain Comment: abd unremarkable, no abd on labs Offered for pt to be monitored overnight due to cont of abd radha or d/c with Percocet. Pt prefers to stay one more night will start Carafate and Simethicone (2) Orthostatic hypotension Comment: Patient reports hx of autonomic orthostatic hypotension Continue home Florinef. (3) Diabetes mellitus Comment: Type 2 diabetes with neuropathy Continue reduced d Lantus and Lispro SSI with meals Consistent carb diet (4) Depression Comment: controlled, cont Celexa (5) DVT prophylaxis Comment: heparin sc Status and Disposition: inpatient
[2017-01-16] MEDS ORDERED: KCL 20 MEQ/100 ML IVPREMIX* 20 MEQ/100 ML BAG ONE (16:07)
[2017-01-16] MEDS: Sucralfate TAB* 1 GM PO SCH ×2 (16:13→20:55)
[2017-01-17] MEDS: NS 0.9% 1000 ML* 1,000 ML IV SCH (00:32)
[2017-01-17] MEDS ORDERED: D5NS 0.9% 1000 ML BAG* 1,000 ML IV SCH (04:00)
[2017-01-17] MEDS: Heparin VIAL(*) 5000 UNITS/ML VIAL (FIVE THOUSAND) SUBCUT SCH ×3 (05:56→14:23)
[2017-01-17 06:24] LABS: Hematocrit 40 % (42-52); Hemoglobin 13.9 g/dl (14.0-18.0); Mean Corpuscular HGB Conc 34 g/dl (31-36); Mean Corpuscular Hemoglobin 30 pg (27-31); Mean Corpuscular Volume 88 fL (80-94); Mean Platelet Volume 8 um3 (7.4-10.4); Red Cell Distribution Width 14 % (10.5-15); White Blood Count 5.4 10^3/ul (3.5-10.8)
[2017-01-17 06:39] LABS: ALT 19 U/L (7-52); AST 19 U/L (13-39); Albumin 3.3 g/dL (3.2-5.2); Alkaline Phosphatase 66 U/L (34-104); Anion Gap 1 mmol/L (2-11); BUN/Creatinine Ratio 15.3 (8-20); Blood Urea Nitrogen 11 mg/dL (6-24); C Reactive Protein < 1.00 mg/L (< 5.00); CO2 Carbon Dioxide 34 mmol/L (22-32); Calcium 8.3 mg/dL (8.6-10.3); Chloride 102 mmol/L (101-111); EGFR African American 150.5 (>60); Globulin 2.9 g/dL (2-4); Glucose 160 mg/dL (70-100); Potassium 3.7 mmol/L (3.5-5.0); Sodium 137 mmol/L (133-145); Total Protein 6.2 g/dL (6.4-8.9)
[2017-01-17] MEDS ORDERED: Insulin GLARGINE(*) 1 UNITS UNIT SUBCUT SCH ×2 (08:56→09:00)
[2017-01-17] MEDS: Fludrocortisone Acetate TAB* 0.1 MG PO SCH (09:15)
[2017-01-17] MEDS: amLODIPine TAB* 5 MG PO SCH (09:15)
[2017-01-17] MEDS: Sucralfate TAB* 1 GM PO SCH ×2 (09:15→14:18)
[2017-01-17] MEDS: Citalopram TAB* 20 MG PO SCH (09:15)
[2017-01-17] MEDS: Insulin LISPRO* 1 UNITS UNIT SUBCUT SCH ×2 (09:16→12:26)
[2017-01-17] MEDS: Ondansetron INJ* 2 MG/ML VIAL IV PRN (14:18)
[2017-01-17] MEDS ORDERED: oxyCODONE/Acetamin 5/325 MG* TAB PO PRN (14:41)
[2017-01-17 14:59] VITALS: BP 159/89
--- NOTE | 2017-01-18 03:17 | DS ---
CC: Dr. Hernandez. DISCHARGE SUMMARY: DATE OF ADMISSION: 01/15/17 DATE OF DISCHARGE: 01/17/17 PRIMARY CARE PROVIDER: Dr. Hernandez. DISCHARGE DIAGNOSES: 1. Vomiting. 2. Abdominal pain, most likely due to gastroenteritis. SECONDARY DIAGNOSES: 1. Diabetes type 2. 2. History of recent hospitalization for major depression in December of 2016. 3. Diabetic neuropathy. 4. History orthostatic hypotension. 5. 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 6. Status post laparoscopic cholecystectomy remotely. 7. History of left knee surgery. MEDICATIONS AT DISCHARGE: Include: 1. Tresiba 55 units subcutaneously q.a.m. 2. Lipitor 20 mg at bedtime. 3. Celexa 20 mg daily. 4. Fludrocortisone 0.1 mg daily. 5. Gabapentin 600 mg 3 times a day. 6. Hydrocortisone cream apply topically on p.r.n. basis to the affected skin. 7. Insulin glargine at a lower dose of 20 units nightly. 8. Insulin lispro per sliding scale. 9. Lactobacillus 1 capsule daily. 10. Losartan 25 mg daily. 11. Benadryl 50 mg every 6 hours p.r.n. 12. Atarax 50 mg every 6 hours p.r.n. 13. Trazodone 100 mg at bedtime p.r.n. LABORATORY DATA AND STUDIES PERFORMED DURING THE HOSPITAL STAY: Included: On 01/17/17 sodium of 137, potassium 3.7, chloride 102, carbon dioxide is 34, BUN 11, creatinine 0.7 2. Liver function tests were unremarkable. C-reactive protein below 1. Lipase was obtained at adm ission and was measured at 15. White blood cell count of 5.4, hemoglobin of 13.9, hematocrit of 40 and platelets of 197. CT of abdomen and pelvis obtained on 01/16/17, impression "patient is status post cholecystectomy. No abnormal masses or fluid collections are noted. No definite evidence of bowel obstruction noted. " HOSPITALIZATION COURSE: Ace Comer is a 46-year-old male with history of depression and diabetes who presented to the hospital complaining of abdominal pain and intractable vomiting. He was admit baljit on 01/15/17 and continued to have symptoms until the morning of the day of discharge of 01/17/17 . Throughout his hospital stay he required multiple doses of morphine. The suspected diagnosis was gastroenteritis. He had a CT of the abdomen and pelvis obtained on 01/16/17 to rule out obstructio n, which was basically unremarkable as mentioned above. On 01/16/17, at night patient's symptoms res olved and never recurred. He is going to be discharged home. Recommendation was to follow up with his primary provider in 4 to 7 days. From his medications, the only change was decrease the dose of Lantus from 50 to 20 units daily due to patient's being hypoglycemic the night prior to discharge. Please note that this is a short summary of the patient's hospital stay. Please refer to further me dical records for details. TIME SPENT: Approximately 35 minutes were spent on the patient's discharge. [id number]/[facility] #: [id number]
--- NOTE | 2017-01-18 04:57 | DS ---
DISCHARGE SUMMARY: ADDENDUM: Mr. Comer did have another episode of emesis before he left the hospital. He is going to be prescribed Zofran on a p.r.n. basis at 8 mg, Zofran ODT every 6 hours p.r.n. I also prescribed him 10 tablets of Percocet 5/325 mg to take 1 tablet every 6 hours p.r.n. I-STOP was checked and the patient's last prescription for oxycodone was in July 2016 and he received at this point 7-day supply. [id number]/[facility] #: [id number] MTDD
== END 2017-01-17 15:30 | disposition home or self-care (01) | DRG 249 ==
LOC: ED 18:30 → MED 23:37 → OBSVTOIN 01-15 17:39
PROVIDERS: ADMIT Internal Medicine; ATTEND Internal Medicine
DX: K52.9 Noninfective gastroenteritis and colitis, unspecified (principal); E11.40 Type 2 diabetes mellitus with diabetic neuropathy, unspecified; E11.649 Type 2 diabetes mellitus with hypoglycemia without coma; F32.9 Major depressive disorder, single episode, unspecified; I95.1 Orthostatic hypotension; Z89.422 Acquired absence of other left toe(s); Z79.4 Long term (current) use of insulin; Z90.49 Acquired absence of other specified parts of digestive tract; Z82.49 Family history of ischemic heart disease and other diseases of the circulatory system; Z83.3 Family history of diabetes mellitus; Z80.1 Family history of malignant neoplasm of trachea, bronchus and lung
CPT/HCPCS: 36415; 71010; 74000; 74177; 80048; 80053; 81003; 81015; 83605; 83690; 84484; 85025; 85610; 85730; 86140; 90686; 93005; A9270-GY; G0378; J0360; J1644; J2060; J2270; J2405; J3480; Q9967

== ENCOUNTER → 2017-01-17 15:58 | Emergency (ER) | payer OTHER ==
[~2017-01-17 15:58] MED LIST: Ondansetron ODT TAB* 4 MG PO ONE
[2017-01-17 18:40] LABS: Hematocrit 42 % (42-52); Hemoglobin 14.3 g/dl (14.0-18.0); Mean Corpuscular HGB Conc 34 g/dl (31-36); Mean Corpuscular Hemoglobin 30 pg (27-31); Mean Corpuscular Volume 89 fL (80-94); Mean Platelet Volume 8 um3 (7.4-10.4); Red Blood Count 4.77 10^6/ul (4.0-5.4); Red Cell Distribution Width 14 % (10.5-15); White Blood Count 6.5 10^3/ul (3.5-10.8)
[2017-01-17 18:46] LABS: Urine Bacteria Absent (Absent); Urine Bilirubin Negative (Negative); Urine Glucose 2+(150 mg/dL) (Negative); Urine Nitrite Negative (Negative); Urine Sperm Present (Absent)
[2017-01-17 18:50] LABS: ALT 21 U/L (7-52); Albumin 3.7 g/dL (3.2-5.2); Alkaline Phosphatase 75 U/L (34-104); BUN/Creatinine Ratio 11.7 (8-20); Blood Urea Nitrogen 11 mg/dL (6-24); CO2 Carbon Dioxide 30 mmol/L (22-32); Calcium 9.2 mg/dL (8.6-10.3); Chloride 103 mmol/L (101-111); EGFR African American 110.6 (>60); Globulin 3.4 g/dL (2-4); Glucose 161 mg/dL (70-100); Sodium 138 mmol/L (133-145); Total Protein 7.1 g/dL (6.4-8.9)
[2017-01-17 18:53] LABS: Acetaminophen < 15 mcg/mL; Alcohol < 10 mg/dL (<10); Salicylate < 2.50 mg/dL (<30)
[2017-01-17 18:54] LABS: Benzodiazepine Urine Screen None Detected (None Detect)
[2017-01-17 19:03] LABS: TSH (Thyroid Stimulating Horm) 3.14 mcIU/mL (0.34-5.60)
--- NOTE | 2017-01-17 19:05 | ED ---
Timothy Cam Alfonso, scribed for Curtis Patel MD on 01/17/17 at 1659 . Psychiatric Complaint - HPI Summary HPI Summary: This patient is a 46 year old M presenting to [facility] with a chief complaint of SI since earlier today. He stated maybe I will and then you will care earlier today and states none of my kids seem to care because they do not call anymore. The patient rates the pain 0/10 in severity. Symptoms aggravated by nothing. Symptoms alleviated by nothing. He was being discharged from [facility] earlier today. PMHx includes DM. - History Of Current Complaint Chief Complaint: EDMentalHealth Hx Obtained From: Patient Onset/Duration: Sudden Onset, Lasting Hours, Still Present Timing: Constant Severity Initially: Moderate Severity Currently: Moderate Aggravating Factor(s): Nothing Alleviating Factor(s): Nothing Associated Signs And Symptoms: Positive: Negative Has Suicidal: Reports: Thoughts - Allergies/Home Medications Allergies/Adverse Reactions: Allergies Allergy/AdvReac Type Severity Reaction Status Date / Time No Known Allergies Allergy Verified 01/17/17 16:50 PMH/Surg Hx/FS Hx/Imm Hx Endocrine/Hematology History: Reports: Hx Diabetes - DM2 Cardiovascular History: Reports: Hx Hypotension - Orthostatic Hypotension Denies: Hx Hypertension Sensory History: Reports: Hx Contacts or Glasses Denies: Hx Hearing Aid Opthamlomology History: Reports: Hx Contacts or Glasses Psychiatric History: Denies: Hx Eating Disorder, Hx of Violent Episodes Against Others - Surgical History Surgery Procedure, Year, and Place: toe amputation, gall bladder removal 2013, surgery left knee age 11 Infectious Disease History: No Infectious Disease History: Denies: Traveled Outside the [place] in Last 30 Days - Family History Known Family History: Positive: Cardiac Disease, Hypertension, Diabetes - Social History Alcohol Use: Occasionally Substance Use Type: Reports: Marijuana Smoking Status (MU): Never Smoked Tobacco Amount Used/How Often: pt. has never used any kind of tobacco ever. Have You Smoked in the Last Year: No Review of Systems Negative: Fever Neurological: Other - SI All Other Systems Reviewed And Are Negative: Yes Physical Exam Triage Information Reviewed: Yes Vital Signs On Initial Exam: Initial Vitals Temp Pulse Resp BP Pulse Ox 98.7 F 88 18 174/90 98 01/17/17 16:00 01/17/17 16:00 01/17/17 16:00 01/17/17 16:00 01/17/17 16:00 Vital Signs Reviewed: Yes Appearance: Positive: Well-Appearing, No Pain Distress Skin: Positive: Warm, Skin Color Reflects Adequate Perfusion, Dry Head/Face: Positive: Normal Head/Face Inspection Eyes: Positive: Normal ENT: Positive: Normal ENT inspection Neck: Positive: Supple, Nontender Respiratory/Lung Sounds: Positive: Clear to Auscultation, Breath Sounds Present Cardiovascular: Positive: RRR Abdomen Description: Positive: Nontender, Soft Bowel Sounds: Positive: Present Musculoskeletal: Positive: Normal Neurological: Positive: Normal, Sensory/Motor Intact, Alert, Oriented to Person Place, Time, CN Intact II-III Psychiatric: Positive: Affect/Mood Appropriate - Brendon Coma Scale Coma Scale Total: 15 Diagnostics - Vital Signs Vital Signs Temp Pulse Resp BP Pulse Ox 01/17/17 16:45 98.8 F 87 16 169/96 98 01/17/17 16:00 98.7 F 88 18 174/90 98 - Laboratory Lab Results: Lab Results 01/17/17 01/17/17 01/17/17 Range/Units 16:50 16:50 18:15 WBC (3.5-10.8) 10^3/ul RBC (4.0-5.4) 10^6/ul Hgb (14.0-18.0) g/dl Hct (42-52) % MCV (80-94) fL MCH (27-31) pg MCHC (31-36) g/dl RDW (10.5-15) % Plt Count (150-450) 10^3/ul MPV (7.4-10.4) um3 Neut % (Auto) (38-83) % Lymph % (Auto) (25-47) % Ashe % (Auto) (1-9) % Eos % (Auto) (0-6) % Baso % (Auto) (0-2) % Absolute Neuts (auto) (1.5-7.7) 10^3/ul Absolute Lymphs (auto) (1.0-4.8) 10^3/ul Absolute Monos (auto) (0-0.8) 10^3/ul Absolute Eos (auto) (0-0.6) 10^3/ul Absolute Basos (auto) (0-0.2) 10^3/ul Absolute Nucleated RBC 10^3/ul Nucleated RBC % Sodium 138 (133-145) mmol/L Potassium Pending Chloride 103 (101-111) mmol/L Carbon Dioxide 30 (22-32) mmol/L Anion Gap Pending BUN 11 (6-24) mg/dL Creatinine 0.94 (0.67-1.17) mg/dL Est GFR ( Amer) 110.6 (>60) Est GFR (Non-Af Amer) 86.0 (>60) BUN/Creatinine Ratio 11.7 (8-20) Glucose 161 H (70-100) mg/dL Calcium 9.2 (8.6-10.3) mg/dL Total Bilirubin 0.40 (0.2-1.0) mg/dL AST Pending ALT 21 (7-52) U/L Alkaline Phosphatase 75 (34-104) U/L Total Protein 7.1 (6.4-8.9) g/dL Albumin 3.7 (3.2-5.2) g/dL Globulin 3.4 (2-4) g/dL Albumin/Globulin Ratio 1.1 (1-3) TSH Pending Urine Color Yellow Urine Appearance Cloudy Urine pH 5.0 (5-9) Ur Specific [place] 1.016 (1.010-1.030) Urine Protein 2+(100 mg/dl) H (Negative) Urine Ketones Negative (Negative) Urine Blood Negative (Negative) Urine Nitrate Negative (Negative) Urine Bilirubin Negative (Negative) Urine Urobilinogen Negative (Negative) Ur Leukocyte Esterase Negative (Negative) Urine WBC (Auto) Trace(0-5/hpf) (Absent) Urine RBC (Auto) Absent (Absent) Urine Bacteria Absent (Absent) Hyaline Casts Present H (Absent) Urine Sperm Present H (Absent) Urine Glucose 2+(150 mg/dl) H (Negative) Salicylates < 2.50 (<30) mg/dL Urine Opiates Screen Presumptive positive H (None Detect) Acetaminophen < 15 mcg/mL Ur Barbiturates Screen None detected (None Detect) Ur Phencyclidine Scrn None detected (None Detect) Ur Amphetamines Screen None detected (None Detect) U Benzodiazepines Scrn None detected (None Detect) Urine Cocaine Screen None detected (None Detect) U Cannabinoids Screen Presumptive positive H (None Detect) Serum Alcohol < 10 (<10) mg/dL 01/17/17 Range/Units 18:15 WBC 6.5 (3.5-10.8) 10^3/ul RBC 4.77 (4.0-5.4) 10^6/ul Hgb 14.3 (14.0-18.0) g/dl Hct 42 (42-52) % MCV 89 (80-94) fL MCH 30 (27-31) pg MCHC 34 (31-36) g/dl RDW 14 (10.5-15) % Plt Count 245 (150-450) 10^3/ul MPV 8 (7.4-10.4) um3 Neut % (Auto) 66.2 (38-83) % Lymph % (Auto) 21.8 L (25-47) % Ashe % (Auto) 8.8 (1-9) % Eos % (Auto) 2.7 (0-6) % Baso % (Auto) 0.5 (0-2) % Absolute Neuts (auto) 4.3 (1.5-7.7) 10^3/ul Absolute Lymphs (auto) 1.4 (1.0-4.8) 10^3/ul Absolute Monos (auto) 0.6 (0-0.8) 10^3/ul Absolute Eos (auto) 0.2 (0-0.6) 10^3/ul Absolute Basos (auto) 0 (0-0.2) 10^3/ul Absolute Nucleated RBC 0 10^3/ul Nucleated RBC % 0.1 Sodium (133-145) mmol/L Potassium Chloride (101-111) mmol/L Carbon Dioxide (22-32) mmol/L Anion Gap BUN (6-24) mg/dL Creatinine (0.67-1.17) mg/dL Est GFR ( Amer) (>60) Est GFR (Non-Af Amer) (>60) BUN/Creatinine Ratio (8-20) Glucose (70-100) mg/dL Calcium (8.6-10.3) mg/dL Total Bilirubin (0.2-1.0) mg/dL AST ALT (7-52) U/L Alkaline Phosphatase (34-104) U/L Total Protein (6.4-8.9) g/dL Albumin (3.2-5.2) g/dL Globulin (2-4) g/dL Albumin/Globulin Ratio (1-3) TSH Urine Color Urine Appearance Urine pH (5-9) Ur Specific [place] (1.010-1.030) Urine Protein (Negative) Urine Ketones (Negative) Urine Blood (Negative) Urine Nitrate (Negative) Urine Bilirubin (Negative) Urine Urobilinogen (Negative) Ur Leukocyte Esterase (Negative) Urine WBC (Auto) (Absent) Urine RBC (Auto) (Absent) Urine Bacteria (Absent) Hyaline Casts (Absent) Urine Sperm (Absent) Urine Glucose (Negative) Salicylates (<30) mg/dL Urine Opiates Screen (None Detect) Acetaminophen mcg/mL Ur Barbiturates Screen (None Detect) Ur Phencyclidine Scrn (None Detect) Ur Amphetamines Screen (None Detect) U Benzodiazepines Scrn (None Detect) Urine Cocaine Screen (None Detect) U Cannabinoids Screen (None Detect) Serum Alcohol (<10) mg/dL Result Diagrams: 01/17/17 18:15 01/17/17 18:15 Lab Statement: Any lab studies that have been ordered have been reviewed, and results considered in the medical decision making process. Course/Dx - Course Course Of Treatment: Mr. Comer comes in C/O nobody caring and he just wants to go home and . He is awaitng medical clearance and MHE. - Differential Dx/Clinical Impression Provider Diagnosis: Depression Discharge - Discharge Plan Condition: Stable Disposition: OTHER Discharge Disposition Comment: Change of shift The documentation as recorded by the Timothy antoine Alfonso accurately reflects the service I personally performed and the decisions made by me, Curtis Patel MD.
[2017-01-17 19:11] LABS: AST 24 U/L (13-39); Anion Gap 5 mmol/L (2-11); Potassium 5.9 mmol/L (3.5-5.0)
[2017-01-17 20:21] VITALS: BP 181/83
--- NOTE | 2017-01-17 22:37 | PN ---
Dana Cam SooYoung, scribed for Cale Perez MD on 01/17/17 at 2226 . Progress Note - Progress Note Date of Service: 01/17/17 Note: Sign out from Dr. Patel pending medical clearance for MHE and MHE. COT: Pt is medically cleared for MHE at 1999. Spoke with mental health underwriting intern , states pt is OK for dispo home. Per underwriting intern, pt states he has a support network and feels safe to go home. DX: DEPRESSION, SI Dispo: Stable, home. The documentation as recorded by the jaredibDana garcia SooYoung accurately reflects the service I personally performed and the decisions made by , Cale Perez MD.
== END ==
LOC: ED 15:58
DX: F32.9 Major depressive disorder, single episode, unspecified (principal); E11.9 Type 2 diabetes mellitus without complications; R45.851 Suicidal ideations
CPT/HCPCS: 36415; 80053; 80307; 80320; 80329; 81003; 81015; 84443; 85025; 99284; A9270-GY; G0480